=== PATIENT | male | born 1955 | race Caucasian/White ===

== ENCOUNTER 2019-10-28 04:20 | Inpatient (IN) | payer OTHER ==
--- NOTE | 2019-10-28 04:55 | PDOC ---
Attending Attestation - Resident Resident Name: Anton Alicia - ED Attending Attestation I have performed the following: I have examined & evaluated the patient, The case was reviewed & discussed with the resident, I agree w/resident's findings & plan - HPI HPI: 10/28/19 05:01 Pt comes with fever and cough and some burning on urination Pt has no complaints otherwise. No GAMBLE and no eat or throat pain Pt has no rashes. - Physicial Exam PE: 10/28/19 05:02 Agree with resident exam HEENT normal. Pt has a left lazy eye Pt has lungs CTAb Pt has normal flank and abd; NT ND No C/C/E heart S1 S2 RRR - Medical Decision Making 10/28/19 05:45 Pt has a temp of 108 Pt has normal CBC chem and flu cx pending CXR pending. 10/28/19 06:35 Pt is flu negative 10/28/19 06:35 CHem normal CBC: normal except for 12 WBC 10/28/19 06:38 Pt has fluid in his fissures and we cannot r/o a pneumonia. Pt cannot urinate for us. We are awaiting urine sample for UA Pt will be signed out to the day team' We will treat with levaquin, as pt is PCN allergic.
[2019-10-28] MEDS ORDERED: ACETAMINOPHEN 1000 MG/100 ML VIAL (NON FORMULARY) IVPB ONE (05:07)
--- NOTE | 2019-10-28 05:10 | PDOC ---
History of Present Illness - General Chief Complaint: Cold Symptoms Stated Complaint: FEVER Time Seen by Provider: 10/28/19 04:50 - History of Present Illness Initial Comments: 10/28/19 05:04 64 yo M with h/o NIDDM, HTN who p/w cough and fever. [facility] with complaint of fevers x 5 days (Tmax 103), and dry non productive cough x 4 days. Denies OTC symptom management. Reports 3 days of ds yuria intermittently. Patient denies GAMBLE, vision change, palpitations, wheezing, orthopena, PND, leg swelling/pain, N/V, CP, SOB, hematuria, BPR, abdominal pain, diarrhea, constipation, lightheadedness, weakness, sensory changes. PMHx: as noted above ROS: as noted SHx: Denies Etoh, IVDA, tobacco use. Not sexually active. No recent travels, or sick contacts. Allergies: NKDA Past History - Past Medical History Allergies/Adverse Reactions: Allergies Allergy/AdvReac Type Severity Reaction Status Date / Time Penicillins Allergy Verified 10/28/19 05:17 - Psycho Social/Smoking Cessation Hx Smoking History: Unknown if ever smoked Have you smoked in the past 12 months: No Information on smoking cessation initiated: No Hx Alcohol Use: No Drug/Substance Use Hx: No Review of Systems - Review of Systems Comments:: 10/28/19 05:14 GENERAL/CONSTITUTIONAL:+fever. No weakness. HEAD, EYES, EARS, NOSE AND THROAT: No change in vision. No ear pain or discharge. No sore throat. CARDIOVASCULAR: No chest pain or shortness of breath RESPIRATORY: + cough. No wheezing, or hemoptysis. GASTROINTESTINAL: No nausea, vomiting, diarrhea or constipation. GENITOURINARY: + dysuria. No frequency, or change in urination. MUSCULOSKELETAL: No joint or muscle swelling or pain. No neck or back pain. SKIN: No rash NEUROLOGIC: No headache, vertigo, loss of consciousness, or change in strength/sensation. ENDOCRINE: No increased thirst. No abnormal weight change HEMATOLOGIC/LYMPHATIC: No anemia, easy bleeding, or history of blood clots. ALLERGIC/IMMUNOLOGIC: No hives or skin allergy. *Physical Exam - Vital Signs Last Vital Signs Temp Pulse Resp BP Pulse Ox 101.8 F H 90 18 122/68 96 10/28/19 04:29 10/28/19 04:29 10/28/19 04:29 10/28/19 04:29 10/28/19 04:29 - Physical Exam 10/28/19 05:15 GENERAL: Awake, alert, and fully oriented, in no acute distress HEAD: No signs of trauma, normocephalic, atraumatic EYES: + Left eye deviated inferolateral. PERRLA, EOMI, sclera anicteric, conjunctiva clear ENT: Auricles normal inspection, hearing grossly normal, nares patent, oropharynx clear without exudates. Moist mucosa NECK: Normal ROM, supple, no lymphadenopathy, JVD, or masses LUNGS: No distress, speaks full sentences, clear to auscultation bilaterally HEART: Regular rate and rhythm, normal S1 and S2, no murmurs, rubs or gallops, peripheral pulses normal and equal bilaterally. ABDOMEN: Soft, nontender, normoactive bowel sounds. No guarding, no rebound. No masses EXTREMITIES : Normal inspection, Normal range of motion, no edema. No clubbing or cyanosis NEUROLOGICAL: Cranial nerves II through XII grossly intact. Normal speech, normal gait, no focal sensorimotor deficits SKIN: Warm, Dry, normal turgor, no rashes or lesions noted ED Treatment Course - LABORATORY CBC & Chemistry Diagram: 10/28/19 05:10 10/28/19 05:10 - RADIOLOGY Radiology Studies Ordered: Category Date Time Status CHEST X-RAY PORTABLE* [RAD] Stat Radiology 10/28/19 05:02 Ordered Medical Decision Making - Medical Decision Making 10/28/19 05:10 64 yo M with h/o NIDDM, HTN who [facility] with complaint of fevers x 5 days (Tmax 103), and dry non productive cough x 4 days. Dysuria x 4 days. HR90, Temp 101.8, vitals otherwise wnl, A&Ox3. Physical exam unremarkable. Suspect viral URI vs. PNA. Will reassess. DDx: URI, PNA, Flu, UTI Ed Course: Tylenol, NS 10/28/19 06:21 Laboratory Tests 10/28/19 10/28/19 05:10 05:10 WBC 12.4 H Hgb 12.6 Hct 37.0 Plt Count 157 Sodium 137 Potassium 4.4 BUN 26.7 H Creatinine 1.1 Troponin I < 0.02 10/28/19 06:45 CXR: R middle lobe infiltrate and LLL infiltrate. Levaquin 500 mg 10/28/19 07:15 Pt. endorsed to day team, stable, pending UA, admit Discharge - Discharge Information Problems reviewed: Yes Clinical Impression/Diagnosis: Cough Pneumonia Qualifiers: Pneumonia type: due to unspecified organism Laterality: bilateral Lung location: lower lobe of lung Qualified Code(s): J18.9 - Pneumonia, unspecified organism Condition: Stable - Admission Yes - Follow up/Referral Referrals: Refugio Moe MD [Primary Care Provider] - - Patient Discharge Instructions Patient Printed Discharge Instructions: DI for Viral Upper Respiratory Infection -- Adult Additional Instructions: Please return to the emergency department with any new or worsening symptoms or concerns. Please follow up with your primary care physician within 72 hours. You can take 600 mg Ibuprofen and/or Acetaminophen 650 mg every 6-8 hours as needed for pain - Post Discharge Activity
[2019-10-28 05:35] LABS: BASO % 0.1 % (0-2.0); EOS % 0.2 % (0-4.5); HEMOGLOBIN 12.6 GM/dL (11.7-16.9); LYMPH % 8.4 % (8-40); MCH 29.9 pg (25.7-33.7); MEAN CELL VOLUME 87.9 fl (80-96); MEAN PLT VOLUME 7.6 fl (7.5-11.1); MONO % 5.8 % (3.8-10.2); NEUT % 85.5 % (42.8-82.8); PLATELET COUNT 157 K/MM3 (134-434); RBC 4.21 M/mm3 (4.00-5.60); RDW 13.6 % (11.9-15.9); WHITE BLOOD COUNT 12.4 K/mm3 (4.0-10.0)
[2019-10-28 06:04] LABS: ALBUMIN 3.5 g/dl (3.4-5.0); ALK PHOS 50 U/L (45-117); ANION GAP 6 MMOL/L (8-16); BILIRUBIN,TOTAL 0.5 mg/dL (0.2-1); BLOOD UREA NITROGEN 26.7 mg/dL (7-18); CALCIUM 8.6 mg/dL (8.5-10.1); CHLORIDE 103 mmol/L (98-107); CO2 27 mmol/L (21-32); CREATININE 1.1 mg/dL (0.55-1.3); GLUCOSE,RANDOM 106 mg/dL (74-106); POTASSIUM 4.4 mmol/L (3.5-5.1); SGOT/AST 18 U/L (15-37); SGPT/ALT 25 U/L (13-61); SODIUM 137 mmol/L (136-145)
[2019-10-28 06:31] LABS: INR 1.16 (0.83-1.09); PROTHROMBIN TIME (PATIENT) 13.7 SEC (9.7-13.0)
[2019-10-28] MEDS ORDERED: SODIUM CHLORIDE 500 ML IV STA (07:32)
[2019-10-28 08:01] LABS: EPI CELLS 0.1 /HPF (0-5/HPF); HYALINE CASTS 6 /lpf (0-8); PH,URINE >= 9.0 (5.0-8.0); URINE APPEARANCE CLEAR; URINE BACTERIA 1176.1 /hpf (NEGATIVE); URINE BILIRUBIN NEGATIVE (NEGATIVE); URINE COLOR YELLOW; URINE GLUCOSE (UA) NEGATIVE (NEGATIVE); URINE KETONE NEGATIVE (NEGATIVE); URINE LEUK ESTERASE 2+ (NEGATIVE); URINE NITRITE NEGATIVE (NEGATIVE); URINE PROTEIN NEGATIVE (NEGATIVE); URINE RBC 6 /hpf (0-4); URINE UROBILINOGEN 0.2 mg/dL (0.2-1.0); URINE WBC 84 /hpf (0-5)
[2019-10-28 08:04] LABS: EPI CELLS 0.1 /HPF (0-5/HPF); HYALINE CASTS 5 /lpf (0-8); PH,URINE 8.5 (5.0-8.0); URINE APPEARANCE CLEAR; URINE BACTERIA 1189.5 /hpf (NEGATIVE); URINE BILIRUBIN NEGATIVE (NEGATIVE); URINE COLOR YELLOW; URINE GLUCOSE (UA) NEGATIVE (NEGATIVE); URINE KETONE NEGATIVE (NEGATIVE); URINE LEUK ESTERASE 2+ (NEGATIVE); URINE NITRITE NEGATIVE (NEGATIVE); URINE PROTEIN NEGATIVE (NEGATIVE); URINE RBC 6 /hpf (0-4); URINE UROBILINOGEN 0.2 mg/dL (0.2-1.0); URINE WBC 89 /hpf (0-5)
--- NOTE | 2019-10-28 09:25 | HP ---
CHIEF COMPLAINT: Cough and fevers PCP: Dr. Carreon HISTORY OF PRESENT ILLNESS: Pt. is a 64 y.o. M w/ PMHx. of Mild intellectual delay, HTN, Anxiety, GERD, DM2, HLD, Gait Instability and BPH presenting from [facility] for non-productive cough for 4 days and associated fevers. Pt. states his temperature was as high as 105 degrees at the facility and then went to 103 before coming to the hospital. Pt. endorses a sore throat from coughing but denies any shortness of breath. Pt. states that he has never had pneumonia before. Pt. also endorses burning sensation on urinating a few days ago but that he increased his fluid intake to "flush it out." Pt. states that 2 days ago he noticed a little bit, "speck" of blood in his urine, but that this has not happened again since. Pt. endorse RLE swelling over the last couple of weeks. Pt. states he gets around with a walker. Pt. denies any current pain or history of heart problems. Pt. denies any nausea, vomiting, abdominal pain, back pain or any other symptoms at this time. Health Aid at bedside corroborates Pt.s description of events but she states she was unable to verify the exact numbers for the temperatures that the Pt. has had. ER course was notable for: (1) CXR, UA, BCx, UCx. CBC, CMP, (2)500cc NS, Levaquin, EKG (3) Recent Travel: No PAST MEDICAL HISTORY: As above PAST SURGICAL HISTORY: Unclear, No surgical scars noted Social History: Smoking: None Alcohol: None Drugs: None Allergies Penicillins Allergy (Verified 10/28/19 05:17) HOME MEDICATIONS: Home Medications Home Medications Medication Instructions Recorded Amlodipine Besylate [Norvasc -] 10 mg PO DAILY 10/28/19 Aspirin 1 tab PO DAILY 10/28/19 Atorvastatin Calcium [Lipitor] 10 mg PO HS 10/28/19 Benztropine Mesylate [Cogentin -] 1 mg PO DAILY 10/28/19 Divalproex [Depakote -] 250 mg PO BID 10/28/19 Docusate Sodium [Docusate 100 mg] 200 mg PO BID 10/28/19 Dutasteride 1 cap PO DAILY 10/28/19 Fenofibrate Nanocrystallized 1 tab PO HS 10/28/19 [Fenofibrate] LORazepam [Lorazepam] 1 mg PO BID 10/28/19 Lisinopril 10 mg PO DAILY 10/28/19 Mag Hydrox/Aluminum Hyd/Simeth 30 ml PO ASDIR 10/28/19 [Lesly-Lanta Liquid] Metformin HCl [Glucophage] 500 mg PO DAILY 10/28/19 York-3/Dha/Epa/Fish Oil [Fish Oil 2 each PO BID 10/28/19 1,000 mg Softgel] Quetiapine Fumarate [Seroquel -] 300 mg PO BID 10/28/19 Tamsulosin HCl [Flomax] 0.8 mg PO DAILY 10/28/19 REVIEW OF SYSTEMS As above PHYSICAL EXAMINATION Vital Signs - 24 hr 10/28/19 10/28/19 10/28/19 04:29 05:34 06:11 Temperature 101.8 F H 98.4 F Pulse Rate 90 Pulse Rate [ 69 Radial] Respiratory 18 18 Rate Blood Pressure 122/68 Blood Pressure 128/70 [Left Arm] O2 Sat by Pulse 96 96 95 Oximetry (%) GENERAL: Awake, alert, in no acute distress. HEAD: Normal with no signs of trauma. EYES: Pupils equal, round and reactive to light, extraocular movements intact, L. eye lateral strabismus EARS, NOSE, THROAT: Ears normal, nares patent, oropharynx clear without exudates. Moist mucous membranes. NECK: No JVD LUNGS: Decreased Breath sounds in RML and LLL, No wheezes, and no crackles. No accessory muscle use. HEART: Regular rate and rhythm, normal S1 and S2 without appreciated murmur, difficult to hear because of body habitus ABDOMEN: Obese, soft, nontender, not distended, normoactive bowel sounds, no guarding, no rebound, no masses. MUSCULOSKELETAL: No CVA tenderness. UPPER EXTREMITIES: 2+ radial pulses, warm, well-perfused. No cyanosis. No clubbing. No peripheral edema. LOWER EXTREMITIES: 2+ dorsal pedal pulses, warm, well-perfused. No calf tenderness. Non-pitting RLE edema with slight lower calf / high ankle erythema. NEUROLOGICAL: Normal speech. Gait not assessed PSYCHIATRIC: Cooperative. Good eye contact. Appropriate mood and affect. SKIN: Warm, dry, normal turgor Laboratory Results - last 24 hr 10/28/19 10/28/19 10/28/19 05:00 05:10 05:10 WBC 12.4 H RBC 4.21 Hgb 12.6 Hct 37.0 MCV 87.9 MCH 29.9 MCHC 34.0 RDW 13.6 Plt Count 157 MPV 7.6 Absolute Neuts (auto) 10.6 H Neutrophils % 85.5 H Lymphocytes % 8.4 Monocytes % 5.8 Eosinophils % 0.2 Basophils % 0.1 Nucleated RBC % 0 PT with INR 13.70 H INR 1.16 H PTT (Actin FS) 36.0 VBG pH Cancelled POC VBG pCO2 Cancelled POC VBG pO2 Cancelled VBG HCO3 Cancelled VBG O2 Sat (Chen) Cancelled VBG Base Excess Cancelled Sodium Potassium Chloride Carbon Dioxide Anion Gap BUN Creatinine Est GFR (CKD-EPI)AfAm Est GFR (CKD-EPI)NonAf Random Glucose Lactic Acid Calcium Total Bilirubin AST ALT Alkaline Phosphatase Troponin I Total Protein Albumin Urine Color Urine Appearance Urine pH Ur Specific Whitman Urine Protein Urine Glucose (UA) Urine Ketones Urine Blood Urine Nitrite Urine Bilirubin Urine Urobilinogen Ur Leukocyte Esterase Urine WBC (Auto) Urine RBC (Auto) Urine Casts (Auto) U Epithel Cells (Auto) Urine Bacteria (Auto) Influenza A (Rapid) Influenza B (Rapid) 10/28/19 10/28/19 10/28/19 05:10 05:10 05:10 WBC RBC Hgb Hct MCV MCH MCHC RDW Plt Count MPV Absolute Neuts (auto) Neutrophils % Lymphocytes % Monocytes % Eosinophils % Basophils % Nucleated RBC % PT with INR INR PTT (Actin FS) VBG pH POC VBG pCO2 POC VBG pO2 VBG HCO3 VBG O2 Sat (Chen) VBG Base Excess Sodium 137 Potassium 4.4 Chloride 103 Carbon Dioxide 27 Anion Gap 6 L BUN 26.7 H Creatinine 1.1 Est GFR (CKD-EPI)AfAm 81.79 Est GFR (CKD-EPI)NonAf 70.57 Random Glucose 106 Lactic Acid 1.6 Calcium 8.6 Total Bilirubin 0.5 AST 18 ALT 25 Alkaline Phosphatase 50 Troponin I < 0.02 Total Protein 7.0 Albumin 3.5 Urine Color Urine Appearance Urine pH Ur Specific Whitman Urine Protein Urine Glucose (UA) Urine Ketones Urine Blood Urine Nitrite Urine Bilirubin Urine Urobilinogen Ur Leukocyte Esterase Urine WBC (Auto) Urine RBC (Auto) Urine Casts (Auto) U Epithel Cells (Auto) Urine Bacteria (Auto) Influenza A (Rapid) Negative Influenza B (Rapid) Negative 10/28/19 10/28/19 07:30 07:30 WBC RBC Hgb Hct MCV MCH MCHC RDW Plt Count MPV Absolute Neuts (auto) Neutrophils % Lymphocytes % Monocytes % Eosinophils % Basophils % Nucleated RBC % PT with INR INR PTT (Actin FS) VBG pH POC VBG pCO2 POC VBG pO2 VBG HCO3 VBG O2 Sat (Chen) VBG Base Excess Sodium Potassium Chloride Carbon Dioxide Anion Gap BUN Creatinine Est GFR (CKD-EPI)AfAm Est GFR (CKD-EPI)NonAf Random Glucose Lactic Acid Calcium Total Bilirubin AST ALT Alkaline Phosphatase Troponin I Total Protein Albumin Urine Color Yellow Yellow Urine Appearance Clear Clear Urine pH >= 9.0 H 8.5 H Ur Specific Whitman 1.021 1.021 Urine Protein Negative Negative Urine Glucose (UA) Negative Negative Urine Ketones Negative Negative Urine Blood Trace 1+ H Urine Nitrite Negative Negative Urine Bilirubin Negative Negative Urine Urobilinogen 0.2 0.2 Ur Leukocyte Esterase 2+ H 2+ H Urine WBC (Auto) 84 89 Urine RBC (Auto) 6 6 Urine Casts (Auto) 6 5 U Epithel Cells (Auto) 0.1 0.1 Urine Bacteria (Auto) 1176.1 1189.5 Influenza A (Rapid) Influenza B (Rapid) ASSESSMENT/PLAN: Pt. is a 64 y.o. M w/ PMHx. of Mild intellectual delay, HTN, Anxiety, GERD, DM2, HLD, Gait Instability and BPH presenting from [facility] for non-productive cough for 4 days, dysuria, hematuria and associated fevers. #Pyelonephritis unclear if Pt. showing systemic symptoms from PNA, UTI or both UA positive for 1+ blood, 2+ LE, 89 WBCs and 1100+ bacteria Pt. endorsed scant hematuria 2 days ago and resolved dysuria c/w Ceftriaxone Rpt. UA prior to discharge to ensure resolution of blood, if unresolved will need Urology outpatient evaluation for cystoscopy Discussed with Nurse at [facility] and she states that Gary went to the Urologist on Wednesday for "foul smelling urine," who did a UA and noted microscopic hematuria, he elected to monitor, and was not given any prescription. Given Levaquin in ED #Cough CXR: Read as w/o definite infiltrates or edema. 10 mm RLL nodule, suggest Chest CT f/u Chest CT Febrile to 101.8 in the hospital Discussed w/ Dr. Carreon at [facility] that Pt. does not meet criteria at this time for Covid-19 testing as Pt. has not been to any of the "affected areas" and Pt. has not been in direct contact with any of the quarantined people from the [facility]. Discussed with Nurse at [facility] and she states that Gary had only been complaining of tiredness. Pt. was not coughing and had not been coughing in her presence. She saw him everyday. Will continue Ceftriaxone, Pt,. has known Penicillin Allergy, will challenge with Ceftriaxone and order PRN Benadryl, discussed with RN to monitor for allergy symptoms and sign out to the next day RN the same. Droplet Precautions f/u RSV and Respiratory Viral Panel. Rapid Flu negative #HTN #GERD #Anxiety #Mood Disorder #DM2 #HLD #BPH #Mild Intellectual Disability c/w home medications or hospital equivalents except Metformin, start ISS and BGM ACHS #FEN no IVF, encourage PO intake monitor electrolytes and replete as needed Diabetic/Na restricted Diet #DVT Ppx. Hep SQ Visit type - Emergency Visit Emergency Visit: Yes ED Registration Date: 10/28/19 Care time: The patient presented to the Emergency Department on the above date and was hospitalized for further evaluation of their emergent condition. - New Patient This patient is new to me today: Yes Date on this admission: 10/28/19 - Critical Care Critical Care patient: No ATTENDING PHYSICIAN STATEMENT I saw and evaluated the patient. I reviewed the resident's note and discussed the case with the resident. I agree with the resident's findings and plan as documented. SUBJECTIVE: OBJECTIVE: ASSESSMENT AND PLAN:
--- NOTE | 2019-10-28 10:27 | EKG ---
Test Reason : Blood Pressure : / mmHG Vent. Rate : 073 BPM Atrial Rate : 073 BPM P-R Int : 206 ms QRS Dur : 154 ms QT Int : 428 ms P-R-T Axes : 015 -38 -03 degrees QTc Int : 471 ms NORMAL SINUS RHYTHM LEFT AXIS DEVIATION RIGHT BUNDLE BRANCH BLOCK MINIMAL VOLTAGE CRITERIA FOR LVH, MAY BE NORMAL VARIANT SEPTAL INFARCT , AGE UNDETERMINED ABNORMAL ECG NO PREVIOUS ECGS AVAILABLE Confirmed by Raoul Menchaca MD ([id number]) on 10/28/2019 10:27:08 AM Referred By: Confirmed By:Raoul Menchaca MD
[2019-10-28] MEDS ORDERED: MAG HYDROX/AL HYDROX/SIMETH 30 ML UNIT-DOSE CUP PO SCH (11:30)
[2019-10-28] MEDS ORDERED: LORazepam 0.5 MG TABLET ONE (11:35)
[2019-10-28] MEDS ORDERED: LISINOPRIL 20 MG TABLET (FP) ONE (11:36)
[2019-10-28] MEDS ORDERED: MAG HYDROX/AL HYDROX/SIMETH 30 ML UNIT-DOSE CUP ONE (11:36)
[2019-10-28] MEDS: ASPIRIN 81 MG CHEWABLE TABLETS PO SCH (11:42)
[2019-10-28] MEDS: TAMSULOSIN HCL 0.4 MG CAP PO SCH (11:42)
[2019-10-28] MEDS: LORazepam 1 MG TABLET PO SCH ×2 (11:42→22:39)
[2019-10-28] MEDS: LISINOPRIL 10 MG TABLET (FP) PO SCH (11:42)
[2019-10-28 13:02] VITALS: BMI 38.6
--- NOTE | 2019-10-28 16:34 | PN ---
Teaching Attending Note Name of Resident: Brett Coreas ATTENDING PHYSICIAN STATEMENT I saw and evaluated the patient. I reviewed the resident's note and discussed the case with the resident. I agree with the resident's findings and plan as documented. SUBJECTIVE: CC: fever and cough x 4 days HPI: Gary is a 64 y/o man with h/o mild intellectual disability, HTN, mood disorder, DM, HLP, BPH, and other medical problems who presented from [place] with cough and fever. The patient and the aid indicate fever x 4-5 days ( 103) . dry cough might have started 2-4 days ago. he denies any sore throat, runny nose, difficulty swallowing, or , N/V . He has no SOB . Cough is dry with no sputum,. He has dysuria and saw blood in his urine x 2 days . he denies abd pain. No diarrhea. facility was called for more info, but no one picked up. Per Dr. Coreas's conversation with Dr. Carreon, He was notified of the patient having fever yesterday, He was not sure when cough started. Dr. Carreon denies any h/o travel for patient . also , No contact with any one who has [place]spina Virus or any one who had contact with [place] Virus confirmed cases. In ER, he was given levaquin for PNA . and was transferred to floor . Cxray ( image and report were reviewed). No infiltrate EKG : reviewed. L axis, R BBB, Qtc 471.sinus rhythm OBJECTIVE: NAD, awake, alert , cooperative . MMM, No lymphadenopathy in neck . CV: RRR, NO MRG Lungs: CTAB. No crackles. no wheezes Abd: soft, NT, ND, NL BS. Ext : trace edema on both lower legs. slight erythema on lower part of legs R > L. R leg is slightly warmer. DP 2+ b/l. varicose veins on both lower legs and feet. Neuro: lateral deviation of L eye . R EOMI , no facial droop. tongue at mid line. Strength 5/5 in upper and lower extremities proximally and distally. decreased sensation to light touch in RLE. ASSESSMENT AND PLAN: Gary is a 64 y/o man with h/o mild intellectual disability, HTN, mood disorder, DM, HLP, BPH, and other medical problems who presented from [place] with cough and fever. 1- Fever: the most likely source is UTI ( dyuria, hematuria, pyuria) . No crackles on exam, No infiltrate on cxray. no sputum production . cough is not fully explained though. ? URI , viral bronchitis. ? Flu. although R leg is slightly erythematous, I think this is from edema and stasis in setting of varicose veins. - start ceftriaxone for UTI - Unfortunately, urine cx was sent after Levaquin was given in ER . will follow - Blood cx was sent befoer Abx - will obtain CT of chest - will obtain full respiratory viral panel, and RSV. rapid flu neg - will place on droplet precautions pending respiratory testing. - start IVF - Due to a probable source of the fever ( UTI), and lack of criteria for exposure/high risk , will not be testing for Cororna virs as risk is low. This was discussed with Dr. Ye. 2- H/o HTN: cont Norvasc and lisinopril 3- RLE decreased sensation : unclear etiology. could be due to back/disk problem . No weakness on neuro exam. - out pt work up 4- H/o Mood disorder: cont divalproex and seroquel and Lorazepam 5- Dispo: HLOC
[2019-10-28] MEDS: BENZTROPINE MESYLATE 1 MG TABLET PO SCH (16:35)
[2019-10-28] MEDS: DIVALPROEX SODIUM 250 MG TABLET E.C. PO SCH ×2 (16:36→22:39)
[2019-10-28] MEDS: amLODIPine BESYLATE 10 MG TABLET (FP) PO SCH (16:46)
[2019-10-28] MEDS: DUTASTERIDE 0.5 MG CAP (FP) PO SCH (16:46)
[2019-10-28] MEDS: INSULIN SLIDING SCALE (NOVOLOG) 1 VIAL SQ SCH ×2 (17:35→22:45)
[2019-10-28] MEDS: SODIUM CHLORIDE 1,000 ML IV SCH (17:37)
[2019-10-28] MEDS: DOCUSATE SODIUM 100 MG CAPSULE (FP) PO SCH ×2 (17:37→22:39)
[2019-10-28] MEDS ORDERED: HEPARIN NA (PORCINE) 5,000 UNITS/ML 1ML VIAL SQ SCH (18:00)
[2019-10-28] MEDS ORDERED: QUEtiapine FUMARATE 100 MG TABLET (FP) ONE (21:20)
[2019-10-28] MEDS ORDERED: QUEtiapine FUMARATE 300 MG TABLET PO SCH (22:00)
[2019-10-28] MEDS: OMEGA-3 ACID ETHYL ESTERS (FATTY-ACIDS) 1 GM CAPSULE (FP) PO SCH (22:39)
[2019-10-28] MEDS: FENOFIBRIC ACID 135 MG CAP PO SCH (22:39)
[2019-10-28] MEDS: ATORVASTATIN CA 10 MG TABLET (FP) PO SCH (22:39)
[2019-10-29] MEDS: HEPARIN NA (PORCINE) 5,000 UNITS/ML 1ML VIAL SQ SCH ×3 (06:26→21:45)
[2019-10-29] MEDS: INSULIN SLIDING SCALE (NOVOLOG) 1 VIAL SQ SCH ×4 (06:26→21:51)
[2019-10-29 07:04] LABS: BASO % 0.2 % (0-2.0); EOS % 1.4 % (0-4.5); HEMATOCRIT 32.9 % (35.4-49); HEMOGLOBIN 11.4 GM/dL (11.7-16.9); LYMPH % 25.4 % (8-40); MCH 30.3 pg (25.7-33.7); MCHC 34.7 g/dl (32.0-35.9); MEAN CELL VOLUME 87.2 fl (80-96); MEAN PLT VOLUME 7.7 fl (7.5-11.1); PLATELET COUNT 149 K/MM3 (134-434); RBC 3.78 M/mm3 (4.00-5.60); RDW 13.4 % (11.9-15.9); WHITE BLOOD COUNT 7.3 K/mm3 (4.0-10.0)
[2019-10-29 07:05] LABS: INR 1.18 (0.83-1.09); PROTHROMBIN TIME (PATIENT) 13.9 SEC (9.7-13.0)
[2019-10-29 07:48] LABS: BILIRUBIN,TOTAL 0.6 mg/dL (0.2-1); BLOOD UREA NITROGEN 26.1 mg/dL (7-18); CALCIUM 8.2 mg/dL (8.5-10.1); CREATININE 0.9 mg/dL (0.55-1.3); PHOSPHOROUS 3.5 mg/dL (2.5-4.9); POTASSIUM 4.2 mmol/L (3.5-5.1); TOT PROT 6.2 g/dl (6.4-8.2)
--- NOTE | 2019-10-29 07:51 | PN ---
Progress Note (short form) - Note Progress Note: Subjective: No fever or chills. no pain , did not sleep last night . contt o have non productive cough Objective: Vital Signs: Last Vital Signs Temp Pulse Resp BP Pulse Ox 98.2 F 62 20 121/70 97 10/29/19 08:58 10/29/19 08:58 10/29/19 09:00 10/29/19 08:58 10/29/19 09:00 Laboratory Results - last 24 hr 10/28/19 10/28/19 10/28/19 13:06 16:58 22:43 WBC RBC Hgb Hct MCV MCH MCHC RDW Plt Count MPV Absolute Neuts (auto) Neutrophils % Lymphocytes % Monocytes % Eosinophils % Basophils % Nucleated RBC % PT with INR INR Sodium Potassium Chloride Carbon Dioxide Anion Gap BUN Creatinine Est GFR (CKD-EPI)AfAm Est GFR (CKD-EPI)NonAf POC Glucometer 93 108 134 Random Glucose Calcium Phosphorus Magnesium Total Bilirubin AST ALT Alkaline Phosphatase Total Protein Albumin 10/29/19 10/29/19 10/29/19 05:51 06:32 06:32 WBC 7.3 RBC 3.78 L Hgb 11.4 L Hct 32.9 L MCV 87.2 MCH 30.3 MCHC 34.7 RDW 13.4 Plt Count 149 MPV 7.7 Absolute Neuts (auto) 4.7 Neutrophils % 65.0 D Lymphocytes % 25.4 D Monocytes % 8.0 Eosinophils % 1.4 D Basophils % 0.2 Nucleated RBC % 0 PT with INR 13.90 H INR 1.18 H Sodium Potassium Chloride Carbon Dioxide Anion Gap BUN Creatinine Est GFR (CKD-EPI)AfAm Est GFR (CKD-EPI)NonAf POC Glucometer 88 Random Glucose Calcium Phosphorus Magnesium Total Bilirubin AST ALT Alkaline Phosphatase Total Protein Albumin 10/29/19 10/29/19 06:32 10:59 WBC RBC Hgb Hct MCV MCH MCHC RDW Plt Count MPV Absolute Neuts (auto) Neutrophils % Lymphocytes % Monocytes % Eosinophils % Basophils % Nucleated RBC % PT with INR INR Sodium 142 Potassium 4.2 Chloride 107 Carbon Dioxide 26 Anion Gap 8 BUN 26.1 H Creatinine 0.9 Est GFR (CKD-EPI)AfAm 104.24 Est GFR (CKD-EPI)NonAf 89.94 POC Glucometer 129 Random Glucose 90 Calcium 8.2 L Phosphorus 3.5 Magnesium 2.0 Total Bilirubin 0.6 AST 16 ALT 19 Alkaline Phosphatase 45 Total Protein 6.2 L Albumin 3.0 L Physical Exam: slightly lethargic , cooperative CV: RRR, NO MRG Lungs: crackles at L base Abd: soft, NT, ND, NL BS. Ext : trace edema on both lower legs. slight erythema on lower part of legs R > L. DP 2+ b/l. varicose veins on both lower legs and feet. ASSESSMENT AND PLAN: Gary is a 64 y/o man with h/o mild intellectual disability, HTN, mood disorder, DM, HLP, BPH, and other medical problems who presented from [place] with cough and fever. 1- B/l PNA: ? CAP VS Aspiration . No fever any more - change ceftriaxone to Zosyn - follow blood cx - send Legionella/pneumococcal Ag - Speech eval - Obtain ID consult for Abx mgt - cont IVF - follow full resp viral panel 2- UTI : cont to have dysuria and hematuria. - non lactose fermenting GNR - change CTX to zosyn 3- HTN: cont Norvasc and Lisinopril 4- decreased sensation in RLE : unclear etiology. could be due to back/disk problem . No weakness on neuro exam. - out pt work up 5- H/o Mood disorder: cont divalproex and seroquel and decrease Lorazepam dose due to lethargy ( also did not sleep last night ) 5- SQ heparin for DVT px Spoke to Dr. Carreon and updated him Visit type - Emergency Visit Emergency Visit: Yes ED Registration Date: 10/28/19 Care time: The patient presented to the Emergency Department on the above date and was hospitalized for further evaluation of their emergent condition. - New Patient This patient is new to me today: No - Critical Care Critical Care patient: No
[2019-10-29] MEDS ORDERED: QUEtiapine FUMARATE 100 MG TABLET (FP) ONE ×2 (08:52→20:46)
[2019-10-29] MEDS ORDERED: QUEtiapine FUMARATE 200 MG TABLET ONE ×2 (08:52→20:46)
[2019-10-29] MEDS ORDERED: PT OWN MED DRAWER 7, Y5N ONE ×3 (08:53→10:47)
[2019-10-29] MEDS ORDERED: AMPICILLIN NA/SULBACTAM NA 3 GM in SODIUM CHLORIDE 100 ML IVPB SCH (09:00)
[2019-10-29] MEDS: SODIUM CHLORIDE 1,000 ML IV SCH ×3 (09:00→22:47)
[2019-10-29] MEDS: OMEGA-3 ACID ETHYL ESTERS (FATTY-ACIDS) 1 GM CAPSULE (FP) PO SCH ×2 (09:03→21:43)
[2019-10-29] MEDS: amLODIPine BESYLATE 10 MG TABLET (FP) PO SCH (09:03)
[2019-10-29] MEDS: ASPIRIN 81 MG CHEWABLE TABLETS PO SCH (09:03)
[2019-10-29] MEDS: QUETIAPINE FUMARATE 200 MG, QUETIAPINE FUMARATE 100 MG PO SCH ×2 (09:03→21:43)
[2019-10-29] MEDS: DUTASTERIDE 0.5 MG CAP (FP) PO SCH (09:03)
[2019-10-29] MEDS: MAG HYDROX/AL HYDROX/SIMETH 30 ML UNIT-DOSE CUP PO SCH (09:03)
[2019-10-29] MEDS: DOCUSATE SODIUM 100 MG CAPSULE (FP) PO SCH ×2 (09:03→21:43)
[2019-10-29] MEDS: TAMSULOSIN HCL 0.4 MG CAP PO SCH (09:03)
[2019-10-29] MEDS: LORazepam 1 MG TABLET PO SCH (09:04)
[2019-10-29] MEDS: LISINOPRIL 10 MG TABLET (FP) PO SCH (09:04)
[2019-10-29] MEDS: BENZTROPINE MESYLATE 1 MG TABLET PO SCH (09:21)
[2019-10-29] MEDS: DIVALPROEX SODIUM 250 MG TABLET E.C. PO SCH ×2 (09:21→21:44)
[2019-10-29] MEDS ORDERED: AZITHROMYCIN IVPB 500 MG in DEXTROSE 5%-WATER - 250 ML IVPB SCH (10:00)
[2019-10-29] MEDS ORDERED: DOXYCYCLINE INJECTION 100 MG in DEXTROSE 5%-WATER - 100 ML IVPB SCH (10:00)
[2019-10-29] MEDS ORDERED: CEFTRIAXONE 1 GM in DEXTROSE 5%-WATER - 50 ML IVPB SCH (10:00)
[2019-10-29] MEDS ORDERED: PIPERACILLIN/TAZOB 4.5 GM 4.5 GM in DEXTROSE 5%-WATER 100 ML IVPB SCH ×2 (10:00→18:00)
--- NOTE | 2019-10-29 15:29 | PN ---
Progress Note (short form) - Note Progress Note: ID consult dictated 64 yo man admitted from [facility]-several days of fever and cough also with intermittent dysuria fever to 101.8 in ED with leukocytosis of 12k found to have pyuria and clear cxray no epidemiologic link to any known coronovirus cases in [place] at the [facility]-was d/w director of the home yesterday by hospitalist received levaquin in ED for uti influenza screen negative resp viral pcr panel pending now afebrile but with some cough chest ct with nonspecific RML, JERONIMO/LLL infiltrates-minimal UTI- will switch to ceftriaxone, qtc .47, fever resolved with levaquin ?pneumonia- rocephin/flagyl, recently at the dentist- ?aspiration continued cough- check rapid rsv antigen, will d/w hospitalist case d/w BERNARDO no indications for testing for covid 19 pen allergy noted maintain current isolation Problem List - Problems (1) UTI (urinary tract infection) Code(s): N39.0 - URINARY TRACT INFECTION, SITE NOT SPECIFIED (2) Pneumonia Code(s): J18.9 - PNEUMONIA, UNSPECIFIED ORGANISM Qualifiers: Pneumonia type: due to unspecified organism Laterality: bilateral Lung location: lower lobe of lung Qualified Code(s): J18.9 - Pneumonia, unspecified organism
[2019-10-29] MEDS ORDERED: cefTRIAXone SODIUM 1 GM VIAL ONE (15:40)
[2019-10-29] MEDS ORDERED: DEXTROSE 5%-WATER - 50 ML IVPB ONE (15:41)
[2019-10-29] MEDS: CEFTRIAXONE 1 GM in DEXTROSE 5%-WATER - 50 ML IVPB SCH (15:47)
[2019-10-29] MEDS: FENOFIBRIC ACID 135 MG CAP PO SCH (21:43)
[2019-10-29] MEDS: LORazepam 0.5 MG TABLET PO SCH (21:44)
[2019-10-29] MEDS: ATORVASTATIN CA 10 MG TABLET (FP) PO SCH (21:44)
[2019-10-30] MEDS: HEPARIN NA (PORCINE) 5,000 UNITS/ML 1ML VIAL SQ SCH ×3 (05:47→22:21)
[2019-10-30] MEDS: INSULIN SLIDING SCALE (NOVOLOG) 1 VIAL SQ SCH ×4 (06:17→22:33)
[2019-10-30 08:50] LABS: BASO % 0.4 % (0-2.0); EOS % 2.7 % (0-4.5); HEMATOCRIT 33.9 % (35.4-49); HEMOGLOBIN 11.4 GM/dL (11.7-16.9); LYMPH % 25.6 % (8-40); MCH 29.9 pg (25.7-33.7); MCHC 33.7 g/dl (32.0-35.9); MEAN CELL VOLUME 88.8 fl (80-96); MEAN PLT VOLUME 7.5 fl (7.5-11.1); MONO % 9.3 % (3.8-10.2); PLATELET COUNT 166 K/MM3 (134-434); RBC 3.81 M/mm3 (4.00-5.60); RDW 13.6 % (11.9-15.9); WHITE BLOOD COUNT 4.5 K/mm3 (4.0-10.0)
[2019-10-30] MEDS ORDERED: PT OWN MED DRAWER 7, Y5N ONE ×2 (09:06→09:44)
[2019-10-30] MEDS ORDERED: QUEtiapine FUMARATE 100 MG TABLET (FP) ONE ×2 (09:43→22:12)
[2019-10-30] MEDS ORDERED: QUEtiapine FUMARATE 200 MG TABLET ONE ×2 (09:43→22:12)
[2019-10-30] MEDS ORDERED: cefTRIAXone SODIUM 1 GM VIAL ONE (09:44)
[2019-10-30] MEDS ORDERED: DEXTROSE 5%-WATER - 50 ML IVPB ONE (09:45)
[2019-10-30] MEDS: ASPIRIN 81 MG CHEWABLE TABLETS PO SCH (09:56)
[2019-10-30] MEDS: TAMSULOSIN HCL 0.4 MG CAP PO SCH (09:56)
[2019-10-30] MEDS: LORazepam 0.5 MG TABLET PO SCH ×2 (09:56→22:21)
[2019-10-30] MEDS: DOCUSATE SODIUM 100 MG CAPSULE (FP) PO SCH ×2 (09:57→22:19)
[2019-10-30] MEDS: DUTASTERIDE 0.5 MG CAP (FP) PO SCH (09:57)
[2019-10-30] MEDS: DIVALPROEX SODIUM 250 MG TABLET E.C. PO SCH ×2 (09:57→23:00)
[2019-10-30] MEDS: OMEGA-3 ACID ETHYL ESTERS (FATTY-ACIDS) 1 GM CAPSULE (FP) PO SCH ×2 (09:58→22:20)
[2019-10-30] MEDS: amLODIPine BESYLATE 10 MG TABLET (FP) PO SCH (09:58)
[2019-10-30] MEDS: LISINOPRIL 10 MG TABLET (FP) PO SCH (09:58)
[2019-10-30] MEDS: MAG HYDROX/AL HYDROX/SIMETH 30 ML UNIT-DOSE CUP PO SCH (09:58)
[2019-10-30] MEDS: BENZTROPINE MESYLATE 1 MG TABLET PO SCH (09:58)
[2019-10-30] MEDS: QUETIAPINE FUMARATE 200 MG, QUETIAPINE FUMARATE 100 MG PO SCH ×2 (09:59→22:19)
[2019-10-30] MEDS: CEFTRIAXONE 1 GM in DEXTROSE 5%-WATER - 50 ML IVPB SCH (11:03)
--- NOTE | 2019-10-30 11:49 | PN ---
Teaching Attending Note Name of Resident: Katelyn Ornelas ATTENDING PHYSICIAN STATEMENT I saw and evaluated the patient. I reviewed the resident's note and discussed the case with the resident. I agree with the resident's findings and plan as documented. SUBJECTIVE: No fever or chills. he feels better . cont to have dry cough Physical Exam: awake, alert, cooperative . externally deviated L eye CV: RRR, NO MRG Lungs: CTAB today Abd: soft, NT, ND, NL BS. Ext: trace edema on both lower legs. slight erythema on lower part of legs R > L. . varicose veins on both lower legs and feet. ASSESSMENT AND PLAN: Gary is a 64 y/o man with h/o mild intellectual disability, HTN, mood disorder, DM, HLP, BPH, and other medical problems who presented from [place] with cough and fever. 1- B/l PNA: ? CAP VS Aspiration . - Cont ceftriaxone and flagyl - follow blood cx ( negative to date) - Legionella/pneumococcal Ag , and rapid RSv neg - Speech eval - can stop IVF . Not septic any more and with god oral intake - follow full resp viral panel 2- UTI : Urine cx with proteus -cont ceftriaxone 3- HTN: cont Norvasc and Lisinopril 4- Decreased sensation in RLE: unclear etiology. could be due to back/disk problem - out pt work up 5- H/o Mood disorder: cont divalproex and seroquel and decreased dose of Lorazepam 5- SQ heparin for DVT px
--- NOTE | 2019-10-30 12:39 | CONSULT ---
Admitting History and Physical - Primary Care Physician PCP: Manuel Upton - Admission History of Present Illness: 64 y/o man with h/o mild intellectual disability, HTN, mood disorder, DM, HLP, BPH, and other medical problems who admitted from [facility]-several days of fever and cough and intermittent dysuria 1- B/l PNA: ? CAP VS Aspiration . 2- UTI : Urine cx with proteus Selected Entries 10/29/19 10/29/19 10/29/19 03:00 08:58 11:24 Breakfast 100% Lunch 100% Supper Temperature 98.2 F 98.2 F 10/29/19 10/29/19 10/29/19 14:00 17:44 22:54 Breakfast Lunch Supper 100% Temperature 97.6 F 98.1 F 10/30/19 10/30/19 10/30/19 07:00 10:00 12:00 Breakfast 100% Lunch Supper Temperature 98.5 F 98.8 F Laboratory Tests 10/28/19 10/29/19 10/30/19 05:10 06:32 08:30 WBC 12.4 H 7.3 4.5 On droplet precautions- r/o rsv History Source: Patient Limitations to Obtaining History: No Limitations - Smoking History Smoking history: Unknown if ever smoked Have you smoked in the past 12 months: No - Alcohol/Substance Use Hx Alcohol Use: No History - Admission Reason For Visit: PNEUMONIA - Diagnostics X-ray: Report Reviewed CT Scan: Report Reviewed (chest ct with nonspecific RML, JERONIMO/LLL infiltrates- minimal) - General Mental Status: Alert and Oriented, Awake and Alert, Able to Follow Commands Attention: Intact Ability to Follow Directions: Excellent Head/Neck Control: WFL - Hearing Hearing: Normal Speech Evaluation - Communication Primary Language: YORUBA Communication: Yes: Within Normal Limits Oral Expression Ability: Yes: Mild Impairment - Speech Production Able to Make Needs Known: Yes: WNL Intelligibility: Yes: Mildly Impaired - Speech Characteristics Voice Loudness: Normal Voice Pitch: Yes: Normal Voice Phonatory-based Quality: Yes: Normal Speech Clarity: < 100% Nasal Resonance: Normal Articulation: Yes: Imprecise - Language/Auditory Comprehension Follows: Yes: 1 Stage Simple Commands Observation: Able to respond to yes/no queries: Yes, Yes/No Confusion: No, Comprehends Conversational Speech: Yes - Language/Verbal Expression Able to Respond to Simple Queries: Yes: WNL Able to Communicate Wants and Needs: Yes: WNL Functional Communication Status: Yes: WNL - Memory/Perception termite treater Memory: Yes: WNL Short Term Memory: Yes: WNL (functional) - Swallow Evaluation/Bedside Assessment Current Nutritional Intake: Regular, Thin Liquids Oral Secretions: Yes: WFL Dentition: Yes: Adequate Facial Symmetry at Rest: Symmetrical Facial Symmetry on Retraction: Symmetrical Facial Movement: Controlled Sensation: Normal Against Resistance Opening: Normal Against Resistance Closing: Normal Pucker Lips: Normal Smile: Normal Lingual Movement: Normal, Symmetric Lingual Speed of Movement: Normal Lingual Movement Strgth Against Opposition: Normal Lingual Movement Characteristics: Normal Velopharyngeal Movement: Normal Laryngeal Elevation: WFL Laryngeal Movement: Able to Palpate Rate of Intake: WFL Bolus Size: WFL Labial Seal: WFL Chewing: WFL Oral Prep Time: WFL A-P Transit: WFL Pocketing: None Timing of Swallow: WFL Coughing/Throat Clear: No Change in Voice: No Recommendations - Speech Evaluation, Impression/Plan Impression: Swallowing overtly intact. - Dysphagia Impressions/Plan Swallowing Skills: WFL Dysphagia Impressions: No Impairment *Silent aspiration: cannot be R/O at bedside - Recommendations Diet Consistency: Regular Medication Administration: Whole with water Liquids: Thin Liquids
--- NOTE | 2019-10-30 13:14 | PN ---
Physical Exam: SUBJECTIVE: Patient seen and examined this AM. No acute events overnight. Continues to have congestive cough with deep inspiration. Continues to have dysuria without associated hematuria. Otherwise denies fevers, chills, chest pain, SOB, nausea, vomiting, diarrhea, constipation. OBJECTIVE: Vital Signs Period Temp Pulse Resp BP Sys/Vásquez Pulse Ox Last 24 Hr 97.6 F-98.8 F 55-61 20-20 119-150/63-80 97 GENERAL: A&Ox3, NAD HEAD: NCAT EYES: PERRL, Left lateral eye deviation ENT: MMM NECK: Supple, No JVD LUNGS: CTAB, Expiratory wheezes, no crackles HEART: Regular rate and rhythm, S1, S2 without murmur ABDOMEN: Soft, Nontender, Nondistended, + bowel sounds, no guarding, no rebound EXTREMITIES: Trace edema with b/l Varicositys present NEUROLOGICAL: Cranial nerves II through XII grossly intact. SKIN: Warm, dry Laboratory Last Values WBC 4.5 K/mm3 (4.0-10.0) 10/30/19 08:30 RBC 3.81 M/mm3 (4.00-5.60) L 10/30/19 08:30 Hgb 11.4 GM/dL (11.7-16.9) L 10/30/19 08:30 Hct 33.9 % (35.4-49) L 10/30/19 08:30 MCV 88.8 fl (80-96) 10/30/19 08:30 MCH 29.9 pg (25.7-33.7) 10/30/19 08:30 MCHC 33.7 g/dl (32.0-35.9) 10/30/19 08:30 RDW 13.6 % (11.9-15.9) 10/30/19 08:30 Plt Count 166 K/MM3 (134-434) 10/30/19 08:30 MPV 7.5 fl (7.5-11.1) 10/30/19 08:30 Absolute Neuts (auto) 2.8 K/mm3 (1.5-8.0) 10/30/19 08:30 Neutrophils % 62.0 % (42.8-82.8) 10/30/19 08:30 Lymphocytes % 25.6 % (8-40) 10/30/19 08:30 Monocytes % 9.3 % (3.8-10.2) 10/30/19 08:30 Eosinophils % 2.7 % (0-4.5) D 10/30/19 08:30 Basophils % 0.4 % (0-2.0) 10/30/19 08:30 Nucleated RBC % 0 % (0-0) 10/30/19 08:30 PT with INR 13.90 SEC (9.7-13.0) H 10/29/19 06:32 INR 1.18 (0.83-1.09) H 10/29/19 06:32 PTT (Actin FS) 36.0 SECONDS (25.2-36.5) 10/28/19 05:10 VBG pH Cancelled 10/28/19 05:00 POC VBG pCO2 Cancelled 10/28/19 05:00 POC VBG pO2 Cancelled 10/28/19 05:00 VBG HCO3 Cancelled 10/28/19 05:00 VBG O2 Sat (Chen) Cancelled 10/28/19 05:00 VBG Base Excess Cancelled 10/28/19 05:00 Sodium 142 mmol/L (136-145) 10/29/19 06:32 Potassium 4.2 mmol/L (3.5-5.1) 10/29/19 06:32 Chloride 107 mmol/L (98-107) 10/29/19 06:32 Carbon Dioxide 26 mmol/L (21-32) 10/29/19 06:32 Anion Gap 8 MMOL/L (8-16) 10/29/19 06:32 BUN 26.1 mg/dL (7-18) H 10/29/19 06:32 Creatinine 0.9 mg/dL (0.55-1.3) 10/29/19 06:32 Est GFR (CKD-EPI)AfAm 104.24 10/29/19 06:32 Est GFR (CKD-EPI)NonAf 89.94 10/29/19 06:32 POC Glucometer 109 UNITS (80-120) 10/30/19 11:52 Random Glucose 90 mg/dL (74-106) 10/29/19 06:32 Lactic Acid 1.6 mmol/L (0.4-2.0) 10/28/19 05:10 Calcium 8.2 mg/dL (8.5-10.1) L 10/29/19 06:32 Phosphorus 3.5 mg/dL (2.5-4.9) 10/29/19 06:32 Magnesium 2.0 mg/dL (1.8-2.4) 10/29/19 06:32 Total Bilirubin 0.6 mg/dL (0.2-1) 10/29/19 06:32 AST 16 U/L (15-37) 10/29/19 06:32 ALT 19 U/L (13-61) 10/29/19 06:32 Alkaline Phosphatase 45 U/L (45-117) 10/29/19 06:32 Troponin I < 0.02 ng/ml (0.00-0.05) 10/28/19 05:10 Total Protein 6.2 g/dl (6.4-8.2) L 10/29/19 06:32 Albumin 3.0 g/dl (3.4-5.0) L 10/29/19 06:32 Urine Color Yellow 10/28/19 07:30 Urine Color Yellow 10/28/19 07:30 Urine Appearance Clear 10/28/19 07:30 Urine Appearance Clear 10/28/19 07:30 Urine pH 8.5 (5.0-8.0) H 10/28/19 07:30 Urine pH >= 9.0 (5.0-8.0) H 10/28/19 07:30 Ur Specific [place] 1.021 (1.010-1.035) 10/28/19 07:30 Ur Specific [place] 1.021 (1.010-1.035) 10/28/19 07:30 Urine Protein Negative (NEGATIVE) 10/28/19 07:30 Urine Protein Negative (NEGATIVE) 10/28/19 07:30 Urine Glucose (UA) Negative (NEGATIVE) 10/28/19 07:30 Urine Glucose (UA) Negative (NEGATIVE) 10/28/19 07:30 Urine Ketones Negative (NEGATIVE) 10/28/19 07:30 Urine Ketones Negative (NEGATIVE) 10/28/19 07:30 Urine Blood 1+ (NEGATIVE) H 10/28/19 07:30 Urine Blood Trace (NEGATIVE) 10/28/19 07:30 Urine Nitrite Negative (NEGATIVE) 10/28/19 07:30 Urine Nitrite Negative (NEGATIVE) 03/07/20 07:30 Urine Bilirubin Negative (NEGATIVE) 10/28/19 07:30 Urine Bilirubin Negative (NEGATIVE) 10/28/19 07:30 Urine Urobilinogen 0.2 mg/dL (0.2-1.0) 10/28/19 07:30 Urine Urobilinogen 0.2 mg/dL (0.2-1.0) 10/28/19 07:30 Ur Leukocyte Esterase 2+ (NEGATIVE) H 10/28/19 07:30 Ur Leukocyte Esterase 2+ (NEGATIVE) H 10/28/19 07:30 Urine WBC (Auto) 84 /hpf (0-5) 10/28/19 07:30 Urine WBC (Auto) 89 /hpf (0-5) 10/28/19 07:30 Urine RBC (Auto) 6 /hpf (0-4) 10/28/19 07:30 Urine RBC (Auto) 6 /hpf (0-4) 10/28/19 07:30 Urine Casts (Auto) 5 /lpf (0-8) 10/28/19 07:30 Urine Casts (Auto) 6 /lpf (0-8) 10/28/19 07:30 U Epithel Cells (Auto) 0.1 /HPF (0-5/HPF) 10/28/19 07:30 U Epithel Cells (Auto) 0.1 /HPF (0-5/HPF) 10/28/19 07:30 Urine Bacteria (Auto) 1176.1 /hpf (NEGATIVE) 10/28/19 07:30 Urine Bacteria (Auto) 1189.5 /hpf (NEGATIVE) 10/28/19 07:30 Influenza A (Rapid) Negative (Negative) 10/28/19 05:10 Influenza B (Rapid) Negative (Negative) 10/28/19 05:10 RSV Rapid Negative (Negative) 10/28/19 05:10 Microbiology 10/28/19 07:30 Urine - Urine Clean Catch Urine Culture - Final Proteus Mirabilis 10/28/19 06:32 Blood - Peripheral Venous Blood Culture - Preliminary NO GROWTH OBTAINED AFTER 24 HOURS, INCUBATION TO CONTINUE FOR 4 DAYS. 10/28/19 05:10 Blood - Peripheral Venous Blood Culture - Preliminary NO GROWTH OBTAINED AFTER 48 HOURS, INCUBATION TO CONTINUE FOR 3 DAYS. 10/29/19 10:25 Urine For Antigen Detection Legionella Antigen - Final 10/29/19 10:25 Urine For Antigen Detection Streptococcus pneumoniae Antigen (M - Final Active Medications Al Hydroxide/Mg Hydroxide (Mylanta Oral Suspension -) 30 ml PO DAILY [facility] Last Admin: 10/30/19 09:58 Dose: 30 ml Documented by: Amlodipine Besylate (Norvasc -) 10 mg PO DAILY [facility] Last Admin: 10/30/19 09:58 Dose: 10 mg Documented by: Aspirin (Asa -) 81 mg PO DAILY [facility] Last Admin: 10/30/19 09:56 Dose: 81 mg Documented by: Atorvastatin Calcium (Lipitor -) 10 mg PO HS [facility] Last Admin: 10/29/19 21:44 Dose: 10 mg Documented by: Benztropine Mesylate (Cogentin -) 1 mg PO DAILY [facility] Last Admin: 10/30/19 09:58 Dose: 1 mg Documented by: Diphenhydramine HCl (Benadryl Injection -) 50 mg IVPB ONCE PRN PRN Reason: ALLERGIES Divalproex Sodium (Depakote -) 250 mg PO BID [facility] Last Admin: 10/30/19 09:57 Dose: 250 mg Documented by: Docusate Sodium (Colace -) 200 mg PO BID [facility] Last Admin: 10/30/19 09:57 Dose: 200 mg Documented by: Dutasteride (Avodart -) 0.5 mg PO DAILY [facility] Last Admin: 10/30/19 09:57 Dose: 0.5 mg Documented by: Fenofibric Acid (Trilipix -) 135 mg PO HS [facility] Last Admin: 10/29/19 21:43 Dose: 135 mg Documented by: Heparin Sodium (Porcine) (Heparin -) 5,000 unit SQ TID [facility] Last Admin: 10/30/19 05:47 Dose: 5,000 unit Documented by: Ceftriaxone Sodium 1 gm/ (Dextrose) 50 mls @ 200 mls/hr IVPB DAILY [facility]; Protocol Last Admin: 10/30/19 11:03 Dose: 200 mls/hr Documented by: Metronidazole (Flagyl 500mg Premixed Ivpb -) 500 mg in 100 mls @ 100 mls/hr IVPB Q8H-IV [facility] Last Admin: 10/30/19 10:00 Dose: 100 mls/hr Documented by: Insulin Aspart (Novolog Vial Sliding Scale -) 1 vial SQ ACHS [facility]; Protocol Last Admin: 10/30/19 11:53 Dose: Not Given Documented by: Lisinopril (Prinivil) 10 mg PO DAILY [facility] Last Admin: 10/30/19 09:58 Dose: 10 mg Documented by: Lorazepam (Ativan -) 0.5 mg PO BID [facility] Last Admin: 10/30/19 09:56 Dose: 0.5 mg Documented by: [id number] Ethyl Esters (Lovaza -) 2 gm PO BID [facility] Last Admin: 10/30/19 09:58 Dose: 2 gm Documented by: Quetiapine Fumarate 200 mg/ (Quetiapine Fumarate 100 mg) 300 mg PO BID [facility] Last Admin: 10/30/19 09:59 Dose: 300 mg Documented by: Tamsulosin HCl (Flomax -) 0.8 mg PO DAILY [facility] Last Admin: 10/30/19 09:56 Dose: 0.8 mg Documented by: ASSESSMENT/PLAN: 64 y/o M PMHx Intellectual delay, HTN, Anxiety, GERD, DM2, HLD, BPH presenting from [facility] with nonproductive cough, dysuria, hematuria and associated fevers and admitted for Pneumonia. #Nonproductive Cough + Fevers -Likley due to B/L Pneumonia; Aspiration vs CAP as noted on chest imaging -Continue Ceftriaxone and Metronidazole (Abx course started on 10/27) -Isolation (Droplet) Precautions -Follow Cx's -Viral panel pending -Influenza, RSV, Legionella Ag, Strep Ag neg #UTI + ?Hematuria -UA: 1+ blood, 2+ LE, 89 WBCs, 1100+ bacteria -Urine culture reveals Proteus -Continue Ceftriaxone #HTN -Continue Amlodipine, Lisinopril #GERD -Continue Mylanta, #DM2 -ISS BGMo ACHS #HLD -Continue Atorvastatin, Fenofibric Acid, Lovaza #BPH -Continue home dose Tamsulosin, Dutasteride #Mild Intellectual Disability, Anxiety, Mood Disorder Continue home dose Depakote, Lorazepam, Quetiapine #FEN -PO Fluids -Replete lytes PRN -Diabetic/Na restricted Diet #PPx -DVT: Heparin Dispo: Continue to monitor on Med-surg Visit type - Emergency Visit Emergency Visit: Yes ED Registration Date: 10/28/19 Care time: The patient presented to the Emergency Department on the above date and was hospitalized for further evaluation of their emergent condition. - New Patient This patient is new to me today: Yes Date on this admission: 10/30/19 - Critical Care Critical Care patient: No ATTENDING PHYSICIAN STATEMENT I saw and evaluated the patient. I reviewed the resident's note and discussed the case with the resident. I agree with the resident's findings and plan as documented. SUBJECTIVE: OBJECTIVE: ASSESSMENT AND PLAN:
--- NOTE | 2019-10-30 15:10 | PN ---
Progress Note (short form) - Note Progress Note: no fevers feels improved minimal cough still notes some dysuria Vital Signs Period Temp Pulse Resp BP Sys/Vásquez Pulse Ox Last 24 Hr 98.1 F-98.8 F 55-60 20-20 127-150/63-80 97 cor-rrr lungs clear abd soft,nt ext no edema CBC, BMP 10/30/19 08:30 10/29/19 06:32 Microbiology 10/28/19 07:30 Urine - Urine Clean Catch Urine Culture - Final Proteus Mirabilis 10/28/19 06:32 Blood - Peripheral Venous Blood Culture - Preliminary NO GROWTH OBTAINED AFTER 24 HOURS, INCUBATION TO CONTINUE FOR 4 DAYS. 10/28/19 05:10 Blood - Peripheral Venous Blood Culture - Preliminary NO GROWTH OBTAINED AFTER 48 HOURS, INCUBATION TO CONTINUE FOR 3 DAYS. 10/29/19 10:25 Urine For Antigen Detection Legionella Antigen - Final 10/29/19 10:25 Urine For Antigen Detection Streptococcus pneumoniae Antigen (M - Final chest ct noted, minimal infiltrates a/p UTI- will switch to ceftriaxone, qtc .47, fever resolved with levaquin-continue ceftriaxone ?pneumonia- rocephin/flagyl, recently at the dentist- ?aspiration f/u resp virus panel pen allergy noted continue droplet isolation d/w hospitalist
[2019-10-30] MEDS: PANTOPRAZOLE 40 MG TABLET PO SCH (15:38)
[2019-10-30] MEDS ORDERED: INSULIN (NOVOLOG) ASPART 100 UNITS/ML 10ML VIAL ONE (19:43)
[2019-10-30] MEDS: ATORVASTATIN CA 10 MG TABLET (FP) PO SCH (22:21)
[2019-10-30] MEDS: FENOFIBRIC ACID 135 MG CAP PO SCH (22:22)
[2019-10-31] MEDS: HEPARIN NA (PORCINE) 5,000 UNITS/ML 1ML VIAL SQ SCH ×2 (07:30→13:05)
[2019-10-31] MEDS: INSULIN SLIDING SCALE (NOVOLOG) 1 VIAL SQ SCH ×3 (07:30→17:30)
[2019-10-31] MEDS ORDERED: QUEtiapine FUMARATE 100 MG TABLET (FP) ONE (09:05)
[2019-10-31] MEDS ORDERED: QUEtiapine FUMARATE 200 MG TABLET ONE (09:06)
[2019-10-31] MEDS ORDERED: PT OWN MED DRAWER 7, Y5N ONE (09:06)
[2019-10-31] MEDS: MAG HYDROX/AL HYDROX/SIMETH 30 ML UNIT-DOSE CUP PO SCH (09:15)
[2019-10-31] MEDS: QUETIAPINE FUMARATE 200 MG, QUETIAPINE FUMARATE 100 MG PO SCH (09:15)
[2019-10-31] MEDS: DUTASTERIDE 0.5 MG CAP (FP) PO SCH (09:16)
[2019-10-31] MEDS: OMEGA-3 ACID ETHYL ESTERS (FATTY-ACIDS) 1 GM CAPSULE (FP) PO SCH (09:16)
[2019-10-31] MEDS: LISINOPRIL 10 MG TABLET (FP) PO SCH (09:16)
[2019-10-31] MEDS: TAMSULOSIN HCL 0.4 MG CAP PO SCH (09:16)
[2019-10-31] MEDS: PANTOPRAZOLE 40 MG TABLET PO SCH (09:16)
[2019-10-31] MEDS: BENZTROPINE MESYLATE 1 MG TABLET PO SCH (09:16)
[2019-10-31] MEDS: DOCUSATE SODIUM 100 MG CAPSULE (FP) PO SCH (09:16)
[2019-10-31] MEDS: ASPIRIN 81 MG CHEWABLE TABLETS PO SCH (09:16)
[2019-10-31] MEDS: DIVALPROEX SODIUM 250 MG TABLET E.C. PO SCH (09:16)
[2019-10-31] MEDS: amLODIPine BESYLATE 10 MG TABLET (FP) PO SCH (09:16)
[2019-10-31] MEDS: LORazepam 0.5 MG TABLET PO SCH (09:16)
[2019-10-31] MEDS ORDERED: cefTRIAXone SODIUM 1 GM VIAL ONE (11:08)
[2019-10-31] MEDS ORDERED: DEXTROSE 5%-WATER - 50 ML IVPB ONE (11:08)
[2019-10-31] MEDS ORDERED: INSULIN (NOVOLOG) ASPART 100 UNITS/ML 10ML VIAL ONE (11:21)
[2019-10-31] MEDS: CEFTRIAXONE 1 GM in DEXTROSE 5%-WATER - 50 ML IVPB SCH (11:24)
--- NOTE | 2019-10-31 13:28 | PN ---
Progress Note, PHARMACY COORDINATOR - Note Progress Note: Selected Entries 10/30/19 10/30/19 10/30/19 07:00 10:00 12:00 Breakfast 100% Lunch 100% Supper Temperature 98.5 F 98.8 F 10/30/19 10/30/19 10/30/19 14:00 17:35 19:55 Breakfast Lunch Supper 100% Temperature 98.2 F 98.8 F 10/30/19 10/30/19 10/31/19 22:00 22:23 02:22 Breakfast Lunch Supper 100% Temperature 98.1 F 98.1 F 10/31/19 10/31/19 07:36 09:11 Breakfast Lunch Supper Temperature 98.1 F 97.6 F Laboratory Tests 10/30/19 08:30 WBC 4.5 Tolerating diet. No further f/u indicated
--- NOTE | 2019-10-31 15:03 | PN ---
Teaching Attending Note Name of Resident: Gama Quick ATTENDING PHYSICIAN STATEMENT I saw and evaluated the patient. I reviewed the resident's note and discussed the case with the resident. I agree with the resident's findings and plan as documented. SUBJECTIVE: No fever or chills. no N/V . no SOB , occasional cough Physical Exam: Awake, alert, cooperative . externally deviated L eye CV: RRR, NO MRG Lungs: CTAB Abd: soft, NT, ND, NL BS. Ext: trace edema on both lower legs. slight erythema on lower part of legs R > L. . varicose veins on both lower legs and feet. ASSESSMENT AND PLAN: Gary is a 64 y/o man with h/o mild intellectual disability, HTN, mood disorder, DM, HLP, BPH, and other medical problems who presented from [place] with cough and fever. 1- B/l PNA: ? CAP VS Aspiration. - No signs of sepsis any more. condition improved. - awaiting ID Recs regarding Abx, ? po abx - follow blood cx ( negative 48 hr ) - full resp viral panel is pending 2- UTI: Urine cx with proteus - Abx per ID Recs 3- HTN: cont Norvasc and Lisinopril 4- Decreased sensation in RLE: unclear etiology. could be due to back/disc problem - out pt work up 5- H/o Mood disorder: cont divalproex and seroquel and Lorazepam 5- SQ heparin for DVT px . dispo : hopefully we can dc today if PO Abx can be used .
--- NOTE | 2019-10-31 16:02 | PN ---
Progress Note (short form) - Note Progress Note: no fevers since admission overall improved Vital Signs Period Temp Pulse Resp BP Sys/Vásquez Pulse Ox Last 24 Hr 97.6 F-98.8 F 56-60 16-20 126-160/67-85 98-98 cor-rrr llungs clear abd soft,nt ext no edema Microbiology 10/28/19 07:30 Urine - Urine Clean Catch Urine Culture - Final Proteus Mirabilis 10/28/19 06:32 Blood - Peripheral Venous Blood Culture - Preliminary NO GROWTH OBTAINED AFTER 24 HOURS, INCUBATION TO CONTINUE FOR 4 DAYS. 10/28/19 05:10 Blood - Peripheral Venous Blood Culture - Preliminary NO GROWTH OBTAINED AFTER 48 HOURS, INCUBATION TO CONTINUE FOR 3 DAYS. 10/29/19 10:25 Urine For Antigen Detection Legionella Antigen - Final 10/29/19 10:25 Urine For Antigen Detection Streptococcus pneumoniae Antigen (M - Final chest ct noted, minimal infiltrates a/p UTI- proteus probable pneumonia doing well afebrile since admission can switch to po ceftin 500 bid to complete 10 days for UTI finish 7 days of flagyl 500 tid as well pen allergy noted
--- NOTE | 2019-10-31 17:01 | DS ---
Physical Exam: SUBJECTIVE: Patient seen and examined in the morning. Patient had no acute events. Patient only complains of difficulty sleeping while in the hospital and dysuria. He has no complaints of shortness of breath, chest pain, abdominal pain, nausea, vomiting, diarrhea. OBJECTIVE: Vital Signs Period Temp Pulse Resp BP Sys/Vásquez Pulse Ox Last 24 Hr 97.6 F-98.8 F 56-60 16-20 126-160/67-85 98-98 PHYSICAL EXAM GENERAL: The patient is awake, alert, and fully oriented, in no acute distress. HEAD: Normal with no signs of trauma. EYES: PERRLA, left lateral eye deviation. ENT:Moist mucous membranes LUNGS: Breath sounds equal, clear to auscultation bilaterally, no wheezes, no cr ackles HEART: Regular rate and rhythm, S1, S2 without murmur, rub or gallop. ABDOMEN: Soft, nontender, nondistended, normoactive bowel sounds, no guarding, no rebound. EXTREMITIES: 2+ pulses, warm, well-perfused, no edema. NEUROLOGICAL: Cranial nerves II through XII grossly intact. PSYCH: Normal mood, normal affect. SKIN: Warm, dry, normal turgor, no rashes or lesions noted. LABS Laboratory Results - last 24 hr 10/30/19 10/31/19 10/31/19 22:31 07:28 11:29 POC Glucometer 130 116 126 Microbiology 10/28/19 06:32 Blood - Peripheral Venous Blood Culture - Preliminary NO GROWTH OBTAINED AFTER 48 HOURS, INCUBATION TO CONTINUE FOR 3 DAYS. 10/28/19 05:10 Blood - Peripheral Venous Blood Culture - Preliminary NO GROWTH OBTAINED AFTER 72 HOURS, INCUBATION TO CONTINUE FOR 2 DAYS. HOSPITAL COURSE: Date of Admission:10/28/19 Date of Discharge: 10/31/19 64 y/o M PMHx Intellectual delay, HTN, Anxiety, GERD, DM2, HLD, BPH presenting from [facility] with nonproductive cough, dysuria, hematuria and associated fevers and admitted for Pneumonia. Patient was treated with Ceftriaxone IV and Flagyl IV. He had chest X-Ray completed which showed a [address] showed infiltrate throughout the right middle lobe and left upper lung. He had urinary culture test positive for Proteus Mirabilis. Patient had improvement in his cough, but he had persistent dysuria. He is stable for oral antibiotics. His flu and rapid RSV was negative. Imaging: Chest X-Ray: Impression: No definite findings of acute infiltrate or edema, there is a 10 mm nodule noted in the right lower lobe, recommend CT chest for further evaluation. Chest CT: Nonspecific patchy areas of infiltrate involving right middle and left upper and lower lungs. Correlation with history of physical exam would prove useful better evaluating these findings. Minutes to complete discharge: 30 Discharge Summary Problems reviewed: Yes Reason For Visit: PNEUMONIA Current Active Problems Cough (Acute) Pneumonia (Acute) Condition: Improved - Instructions Diet, Activity, Other Instructions: Mr. Wilson was admitted to the hospital for treatment of pneumonia and urinary tract infection. He was tested for flu which he was negative for, and other common respiratory infections; the results of which are pending. If he has any positives from that panel we will call and update your facility. He is now stable and can continue his antibiotic treatment as an outpatient. Please continue the following new medications for Mr. Wilson: Flagyl 500 mg,every 8 hours , by mouth for the next 5 days. His last dose will be in the evening on 11/05/2019. Ceftin 500 mg, every 12 hours , by mouth for the next 7 days. His last dose will be in the evening on 11/07/2019. We have not changed his other home medications, please continue them as directed. Please follow up with your primary care physician, Dr. Carreon within 1 week. Return to the Emergency Department if you have shortness of breath, chest pain, nausea, vomiting, diarrhea, or high fevers. Referrals: Jayce Carreon MD [Primary Care Provider] - Disposition: [facility] FACILITY - Home Medications Comprehensive Discharge Medication List: Ambulatory Orders Amlodipine Besylate [Norvasc -] 10 mg PO DAILY 10/28/19 Aspirin 1 tab PO DAILY 10/28/19 Atorvastatin Calcium [Lipitor] 10 mg PO HS 10/28/19 Benztropine Mesylate [Cogentin -] 1 mg PO DAILY 10/28/19 Divalproex [Depakote -] 250 mg PO BID 10/28/19 Docusate Sodium [Docusate 100 mg] 200 mg PO BID 10/28/19 Dutasteride 1 cap PO DAILY 10/28/19 Fenofibrate Nanocrystallized [Fenofibrate] 1 tab PO HS 10/28/19 LORazepam [Lorazepam] 1 mg PO BID 10/28/19 Lisinopril 10 mg PO DAILY 10/28/19 Mag Hydrox/Aluminum Hyd/Simeth [Lesly-Lanta Liquid] 30 ml PO ASDIR 10/28/19 Metformin HCl [Glucophage] 500 mg PO DAILY 10/28/19 [place]-3/Dha/Epa/Fish Oil [Fish Oil 1,000 mg Softgel] 2 each PO BID 10/28/19 Quetiapine Fumarate [Seroquel -] 300 mg PO BID 10/28/19 Tamsulosin HCl [Flomax] 0.8 mg PO DAILY 10/28/19 Cholecalciferol (Vitamin D3) [Vitamin D3] 5,000 unit PO DAILY 10/30/19 Divalproex [Depakote -] 500 mg PO BID 10/30/19 Propylene Glycol/Peg 400/Pf [Systane 0.3-0.4% Eye Drop] 1 each OP QID PRN 10/30/19 Cefuroxime Axetil [Ceftin -] 500 mg PO Q12H #14 tablet 10/31/19 metroNIDAZOLE [Flagyl -] 500 mg PO Q8H #5 tablet 10/31/19 This patient is new to me today: Yes Date on this admission: 10/31/19 Emergency Visit: Yes ED Registration Date: 10/28/19 Care time: The patient presented to the Emergency Department on the above date and was hospitalized for further evaluation of their emergent condition. Critical Care patient: No - Discharge Referral Referred to [facility] No ATTENDING PHYSICIAN STATEMENT I saw and evaluated the patient. I reviewed the resident's note and discussed the case with the resident. I agree with the resident's findings and plan as documented. SUBJECTIVE: OBJECTIVE: ASSESSMENT AND PLAN:
[2019-10-31 17:28] VITALS: BP 137/72; PULSE 68; TEMP 98.2
== END 2019-10-31 18:47 | disposition home or self-care (01) | DRG 194 ==
LOC: JER 04:20 → SUPCPDRO 04:20 → JERBED 07:15 → J7W 13:23 → J8W 18:19
PROVIDERS: ADMIT Internal Medicine; ATTEND Internal Medicine
DX: J18.9 Pneumonia, unspecified organism (principal); N39.0 Urinary tract infection, site not specified; I10 Essential (primary) hypertension; E11.9 Type 2 diabetes mellitus without complications; E78.5 Hyperlipidemia, unspecified; K21.9 Gastro-esophageal reflux disease without esophagitis; F41.9 Anxiety disorder, unspecified; R26.9 Unspecified abnormalities of gait and mobility; N40.0 Benign prostatic hyperplasia without lower urinary tract symptoms; F81.9 Developmental disorder of scholastic skills, unspecified; F39 Unspecified mood [affective] disorder; B96.4 Proteus (mirabilis) (morganii) as the cause of diseases classified elsewhere
CPT/HCPCS: 36415; 71045-TC-FY; 71250-TC; 80053; 81003; 82962; 83605; 83735; 84100; 84484; 85025; 85610; 85730; 87040; 87086; 87186; 87254; 87633; 87804; 87807; 87899; 93005; 93010; 97116-GP; 97161-GP; 99285-25; J0131; J1644; J7030

== ENCOUNTER 2020-04-10 10:07 | Emergency (ER) | payer OTHER ==
[2020-04-10 11:14] VITALS: PULSE 79; TEMP 98.3; BMI 34.2
[2020-04-10 11:38] LABS: BASO % 0.4 % (0-2.0); EOS % 1.2 % (0-4.5); HEMOGLOBIN 13.1 GM/dL (11.7-16.9); LYMPH % 25.2 % (8-40); MCH 29.8 pg (25.7-33.7); MCHC 33.6 g/dl (32.0-35.9); MEAN CELL VOLUME 88.5 fl (80-96); MEAN PLT VOLUME 8.5 fl (7.5-11.1); MONO % 7.5 % (3.8-10.2); NEUT % 65.7 % (42.8-82.8); PLATELET COUNT 153 K/MM3 (134-434); RBC 4.41 M/mm3 (4.00-5.60); WHITE BLOOD COUNT 4.3 K/mm3 (4.0-10.0)
[2020-04-10 12:09] LABS: ALBUMIN 3.3 g/dl (3.4-5.0); ALK PHOS 93 U/L (45-117); ANION GAP 8 MMOL/L (8-16); BILIRUBIN,TOTAL 0.4 mg/dL (0.2-1); BLOOD UREA NITROGEN 31.9 mg/dL (7-18); CALCIUM 9.2 mg/dL (8.5-10.1); CHLORIDE 107 mmol/L (98-107); CO2 27 mmol/L (21-32); CREATININE 1.4 mg/dL (0.55-1.3); GLUCOSE,RANDOM 88 mg/dL (74-106); POTASSIUM 4.4 mmol/L (3.5-5.1); SGOT/AST 35 U/L (15-37); SGPT/ALT 32 U/L (13-61); SODIUM 141 mmol/L (136-145); TOT PROT 6.8 g/dl (6.4-8.2)
[2020-04-10] MEDS ORDERED: SODIUM CHLORIDE 500 ML IV STA (12:19)
--- NOTE | 2020-04-10 12:49 | EKG ---
Test Reason : Blood Pressure : / mmHG Vent. 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
--- NOTE | 2020-04-10 12:58 | PDOC ---
Documentation entered by Hermes Jaime SCRIBE, acting as scribe for Theodore Alex MD. Theodore Alex MD: This documentation has been prepared by the Yeni hernandez Xhesika, SCRIBE, under my direction and personally reviewed by me in its entirety. I confirm that the documentation accurately reflects all work, treatment, procedures, and medical decision making performed by me. History of Present Illness - General Chief Complaint: Syncope/Near Syncope Stated Complaint: SYNCOPE Time Seen by Provider: 04/10/20 10:36 History Source: Patient Exam Limitations: No Limitations - History of Present Illness Initial Comments: 04/10/20 10:47 The patient is a 64y/o M with h/o NIDDM, HTN who presents to the ED BIBA from [facility] s/p [facility]. Pt states he was bathing this morning, his legs got stiff and he fell from standing. Pt denies hitting his head or LOC. Pt states he ambulates with a walker at baseline. Pt reports he had a headache earlier but has since resolved. Pt denies any pain while in the ED. The patient denies chest pain, shortness of breath, headache and dizziness. Denies fever, chills, cough, nausea, vomiting, diarrhea and constipation. Denies dysuria, frequency, urgency and hematuria. Allergies: Penicillins Past History - Medical History Allergies/Adverse Reactions: Allergies Allergy/AdvReac Type Severity Reaction Status Date / Time Penicillins Allergy Verified 04/10/20 10:25 Home Medications: Ambulatory Orders Amlodipine Besylate [Norvasc -] 10 mg PO DAILY 10/28/19 Aspirin 1 tab PO DAILY 10/28/19 Atorvastatin Calcium [Lipitor] 10 mg PO HS 10/28/19 Benztropine Mesylate [Cogentin -] 1 mg PO DAILY 10/28/19 Divalproex [Depakote -] 250 mg PO BID 10/28/19 Docusate Sodium [Docusate 100 mg] 200 mg PO BID 10/28/19 Dutasteride 1 cap PO DAILY 10/28/19 Fenofibrate Nanocrystallized [Fenofibrate] 1 tab PO HS 10/28/19 LORazepam [Lorazepam] 1 mg PO BID 10/28/19 Lisinopril 10 mg PO DAILY 10/28/19 Mag Hydrox/Aluminum Hyd/Simeth [Lesly-Lanta Liquid] 30 ml PO ASDIR 10/28/19 Metformin HCl [Glucophage] 500 mg PO DAILY 10/28/19 [place]-3/Dha/Epa/Fish Oil [Fish Oil 1,000 mg Softgel] 2 each PO BID 10/28/19 Quetiapine Fumarate [Seroquel -] 300 mg PO BID 10/28/19 Tamsulosin HCl [Flomax] 0.8 mg PO DAILY 10/28/19 Cholecalciferol (Vitamin D3) [Vitamin D3] 5,000 unit PO DAILY 10/30/19 Divalproex [Depakote -] 500 mg PO BID 10/30/19 Propylene Glycol/Peg 400/Pf [Systane 0.3-0.4% Eye Drop] 1 each OP QID PRN 05/12 COPD: No Diabetes: Yes GI Disorders: Yes (GERD) Disorders: Yes (BPH) HTN: Yes Hypercholesterolemia: Yes Psychiatric Problems: Yes (DEPRESSION,ANXIETY) Seizures: Yes Other medical history: DEVELOPMENTAL DELAY - Psycho-Social/Smoking History Smoking History: Never smoked Have you smoked in the past 12 months: No - Substance Abuse Hx (Audit-C & DAST Scrn) How often the patient has a drink containing alcohol: Never Score: In Men: 4 or > Positive; In Women: 3 or > Positive: 0 Screen Result (Pos requires Nsg. Audit-10AR): Negative In the last yr the pt used illegal drug/Rx for NonMed reason: No Score: Yes response is considered Positive: 0 Screen Result (Positive result requires Nsg. DAST-10): Negative Review of Systems - Review of Systems Able to Perform ROS?: Yes Comments:: 04/10/20 10:48 CONSTITUTIONAL: No fever, no chills, no fatigue. +presents s/p fall EYES: No visual changes ENT: No ear pain, no sore throat CARDIOVASCULAR: No chest pain, no palpitations RESPIRATORY: No cough, no SOB GI: No abdominal pain, no nausea, no vomiting, no constipation, no diarrhea GENITOURINARY: No dysuria, no frequency, no hematuria MUSKULOSKELETAL: No backpain, no joint pain, no myalgias SKIN: No rash NEURO: No headache *Physical Exam - Vital Signs Last Vital Signs Temp Pulse Resp BP Pulse Ox 98.3 F 79 20 108/68 94 L 04/10/20 10:25 04/10/20 10:25 04/10/20 10:25 04/10/20 10:25 04/10/20 10:25 - Physical Exam 04/10/20 12:50 EXAMINATION CONSTITUTIONAL: Awake, aert; obese; in no apparent distress HEAD: Normocephalic; atraumatic EYES: PERRL; left ptosis, wih left eye deviated to the left (old); no ystagmus ENMT: External appears normal; mm-dry NECK: Supple; non-tender; no cervical lymphadenopathy CARD: Normal S1, S2; 2/6 se murmurs, no rubs, or gallops RESP: Normal chest excursion with respiration; breath sounds clear and equal bilaterally; no wheezes, rhonchi, or rales ABD: Soft, non-distended; non-tender; no palpable organomegaly, no palpable hernias PELVIS: stable EXT: Normal passive ROM in all four extremities; non-tender to palpation; distal pulses intact SKIN: Warm, dry, no rash NEURO: follows commands; motor: UEs: 5/5 b/l; LEs: 3/5 b/l Heart Score/ECG Review - ECG Impressions Comment:: 04/10/20 12:29 EKG performed at 10:23 demonstrates rate of 80bpm. Sinus rhythm with 1st degree AV block with premature atrial complexes. Left axis deviation. Minimal voltage criteria for LVH. ED Treatment Course - LABORATORY CBC & Chemistry Diagram: 04/10/20 11:15 04/10/20 11:15 Medical Decision Making - Medical Decision Making 04/10/20 12:56 Patient is a 65-year-old male with multiple comorbidities who presents from a long-term after a fall without head injury or LOC. In the ER, patient is awake and alert, nontoxic-appearing, hemodynamically stable. There is no indication for radiological evaluation of head/cervical spine/chest/abdomen/pelvis at this time. Serial abdominal exams reveal no focal tenderness. Patient is at baseline. CBC is within normal limit. CMP reveals mildly elevated BUN/c reatinine. Patient is currently receiving IV fluids. Will discharge. Discharge - Discharge Information Problems reviewed: Yes Clinical Impression/Diagnosis: Dehydration Fall Qualifiers: Encounter type: initial encounter Qualified Code(s): W19.XXXA - Unspecified fall, initial encounter Condition: Stable Disposition: HOME - Follow up/Referral Referrals: Vasu Carreon Jr [Primary Care Provider] - - Patient Discharge Instructions Patient Printed Discharge Instructions: DI for Muscle Weakness - Post Discharge Activity
[2020-04-10 13:29] VITALS: BP 135/75
== END 2020-04-10 14:03 | disposition home or self-care (01) ==
LOC: JER 10:07
DX: E86.0 Dehydration (principal); W19.XXXA Unspecified fall, initial encounter
CPT/HCPCS: 36415; 80053; 82550; 82962; 84484; 85025; 93005; 93010; 99284-25

== ENCOUNTER 2020-07-11 13:23 | Emergency (ER) | payer OTHER ==
[2020-07-11 13:59] VITALS: BP 118/69; PULSE 68; TEMP 98.6; BMI 40.6
[2020-07-11 14:39] LABS: PH,URINE 7.5 (5.0-8.0); URINE APPEARANCE CLEAR; URINE BILIRUBIN NEGATIVE (NEGATIVE); URINE COLOR YELLOW; URINE GLUCOSE (UA) NEGATIVE (NEGATIVE); URINE KETONE NEGATIVE (NEGATIVE); URINE LEUK ESTERASE NEGATIVE (NEGATIVE); URINE NITRITE NEGATIVE (NEGATIVE); URINE PROTEIN NEGATIVE (NEGATIVE); URINE UROBILINOGEN 0.2 mg/dL (0.2-1.0)
[2020-07-11 14:46] LABS: BASO % 0.6 % (0-2.0); EOS % 1.5 % (0-4.5); HEMATOCRIT 42.2 % (35.4-49); HEMOGLOBIN 13.8 GM/dL (11.7-16.9); LYMPH % 43.3 % (8-40); MCHC 32.8 g/dl (32.0-35.9); MEAN CELL VOLUME 88.4 fl (80-96); MONO % 8.9 % (3.8-10.2); NEUT % 45.7 % (42.8-82.8); PLATELET COUNT 109 K/MM3 (134-434); RBC 4.77 M/mm3 (4.00-5.60); RDW 14.3 % (11.9-15.9); WHITE BLOOD COUNT 3.2 K/mm3 (4.0-10.0)
[2020-07-11 15:07] LABS: ALBUMIN 3.4 g/dl (3.4-5.0); CALCIUM 8.9 mg/dL (8.5-10.1)
[2020-07-11 15:11] LABS: CREATININE 1.1 mg/dL (0.55-1.3)
[2020-07-11 15:13] LABS: BILIRUBIN,TOTAL 0.7 mg/dL (0.2-1); TOT PROT 6.8 g/dl (6.4-8.2)
== END 2020-07-11 16:07 ==
LOC: JER 13:23
DX: R33.9 Retention of urine, unspecified (principal); R30.0 Dysuria
CPT/HCPCS: 36415; 80053; 81003; 85025; 87086; 99283-25

== ENCOUNTER 2020-11-01 12:05 | Emergency (ER) | payer OTHER ==
[2020-11-01 12:10] VITALS: BMI 40.6
[2020-11-01 13:52] LABS: BASO % 0.3 % (0-2.0); EOS % 1.5 % (0-4.5); HEMOGLOBIN 13.2 GM/dL (11.7-16.9); LYMPH % 45.4 % (8-40); MEAN PLT VOLUME 8.1 fl (7.5-11.1); MONO % 9.1 % (3.8-10.2); NEUT % 43.7 % (42.8-82.8); PLATELET COUNT 115 K/MM3 (134-434); RDW 14.6 % (11.9-15.9); WHITE BLOOD COUNT 3.2 K/mm3 (4.0-10.0)
[2020-11-01 13:54] LABS: CHLORIDE 107 mmol/L (98-107); POTASSIUM 4.3 mmol/L (3.5-5.1); SODIUM 141 mmol/L (136-145)
[2020-11-01 13:56] LABS: CALCIUM 9.4 mg/dL (8.5-10.1)
[2020-11-01 13:57] LABS: ALBUMIN 3.2 g/dl (3.4-5.0); ANION GAP 5 MMOL/L (8-16); BLOOD UREA NITROGEN 24.7 mg/dL (7-18); CO2 30 mmol/L (21-32); GLUCOSE,RANDOM 82 mg/dL (74-106)
[2020-11-01 13:58] LABS: CHOLESTEROL 102 mg/dL (50-200)
[2020-11-01 13:59] LABS: TRIGLYCERIDES 81 mg/dL (0-150)
[2020-11-01 14:00] LABS: LDL CHOLESTEROL (ONLY SJRH) 62 mg/dL (5-100); SGOT/AST 31 U/L (15-37); SGPT/ALT 34 U/L (13-61)
[2020-11-01 14:01] LABS: BILIRUBIN,TOTAL 0.5 mg/dL (0.2-1); HDL CHOLESTEROL 29 mg/dL (40-60); INR 1.17 (0.83-1.09); PROTHROMBIN TIME (PATIENT) 14.1 SEC (9.7-13.0); TOT PROT 6.9 g/dl (6.4-8.2)
[2020-11-01 14:03] LABS: ALK PHOS 56 U/L (45-117)
[2020-11-01 14:04] LABS: ACTIVATED PTT 36.8 SECONDS (25.2-36.5)
[2020-11-01 18:46] LABS: EPI CELLS 13 /uL (0-25.1); HYALINE CASTS 2 /uL (0-3.1); PH,URINE 8.5 (5.0-8.0); URINE APPEARANCE TURBID; URINE BACTERIA 605 /uL (0-1359); URINE BILIRUBIN NEGATIVE (NEGATIVE); URINE COLOR YELLOW; URINE GLUCOSE (UA) NEGATIVE (NEGATIVE); URINE KETONE NEGATIVE (NEGATIVE); URINE LEUK ESTERASE 1+ (NEGATIVE); URINE NITRITE NEGATIVE (NEGATIVE); URINE PROTEIN NEGATIVE (NEGATIVE); URINE RBC 15 /uL (0-23.9); URINE UROBILINOGEN 0.2 mg/dL (0.2-1.0); URINE WBC 78 /uL (0-25.8)
[2020-11-01 20:09] VITALS: BP 152/65; PULSE 71; TEMP 97.7
== END 2020-11-01 20:09 ==
LOC: JER 12:05
DX: R53.1 Weakness (principal)
CPT/HCPCS: 36415; 70450-TC; 70544-TC; 70547-TC; 70551-TC; 80053; 80061; 81003; 82550; 83721; 84484; 85025; 85610; 85730; 93005; 93010; 99284-25

== ENCOUNTER 2023-01-19 10:23 | Inpatient (IN) | payer OTHER ==
[2023-01-19 10:34] VITALS: BMI 35.3
[2023-01-19] MEDS ORDERED: ALBUTEROL SO4 2.5/IPRATROPIUM 0.5 INH SOL 3 ML VIAL.NEB. NEB ONE ×3 (10:51→10:52)
[2023-01-19] MEDS ORDERED: SODIUM CHLORIDE 0.9% 500 ML INFUS.BAG IV ONE (10:53)
[2023-01-19 11:16] LABS: BASO % 0.2 % (0-2.0); EOS % 0.8 % (0-4.5); HEMATOCRIT 36.7 % (35.4-49); HEMOGLOBIN 12.4 GM/dL (11.7-16.9); MCH 29.3 pg (25.7-33.7); MCHC 33.9 g/dl (32.0-35.9); MEAN CELL VOLUME 86.5 fl (80-96); MEAN PLT VOLUME 7.5 fl (7.5-11.1); MONO % 10.4 % (3.8-10.2); NEUT % 65.6 % (42.8-82.8); PLATELET COUNT 121 10^3/uL (134-434); RBC 4.24 M/mm3 (4.00-5.60); RDW 14.7 % (11.9-15.9); VENOUS BASE EXCESS 0.1 mmol/L (-2-2); VENOUS O2 SATURATION 57.6 % (70-80); VENOUS PH 7.32 (7.310-7.410); WHITE BLOOD COUNT 4.7 K/mm3 (4.0-10.0)
[2023-01-19 11:26] LABS: INR 1.21 (0.83-1.09)
[2023-01-19 11:29] LABS: ACTIVATED PTT 30.7 SECONDS (25.2-36.5)
[2023-01-19 11:33] LABS: POTASSIUM 4.2 mmol/L (3.5-5.1)
[2023-01-19 11:35] LABS: CALCIUM 8.3 mg/dL (8.5-10.1)
[2023-01-19 11:36] LABS: BLOOD UREA NITROGEN 28.8 mg/dL (7-18)
[2023-01-19 11:39] LABS: CREATININE 0.6 mg/dL (0.55-1.3)
[2023-01-19 11:40] LABS: BILIRUBIN,TOTAL 0.5 mg/dL (0.2-1); TOT PROT 6.1 g/dl (6.4-8.2)
[2023-01-19 11:45] LABS: ALBUMIN 2.8 g/dl (3.4-5.0)
[2023-01-19] MEDS ORDERED: ACETAMINOPHEN 1000 MG/100 ML BAG IVPB ONE (12:10)
[2023-01-19] MEDS ORDERED: ACETAMINOPHEN INJECTION 100 ML IVPB ONE (12:14)
[2023-01-19] MEDS ORDERED: AZITHROMYCIN IVPB 500 MG in DEXTROSE 5%-WATER - 250 ML IVPB ONE (14:11)
[2023-01-19] MEDS ORDERED: CEFTRIAXONE 1 GM in DEXTROSE 5%-WATER - 100 ML IVPB ONE (14:11)
[2023-01-19] MEDS ORDERED: CEFTRIAXONE 1 GM/50 ML BAG ONE (14:27)
[2023-01-19] MEDS ORDERED: ENOXAPARIN NA (PORCINE) 60 MG/0.6 ML DISP.SYRIN SQ ONE ×2 (15:00→15:05)
[2023-01-19] MEDS: INSULIN SLIDING SCALE (NOVOLOG) 1 VIAL SQ SCH ×2 (18:42→21:32)
[2023-01-19] MEDS ORDERED: BENZOCAINE/MENTH/CETYLPYRD CL 1 EACH LOZENGE MM ONE ×2 (20:50→22:00)
[2023-01-19] MEDS: LORazepam 1 MG TABLET PO SCH (21:30)
[2023-01-19] MEDS: QUEtiapine FUMARATE 100 MG TABLET (FP) PO SCH (21:31)
[2023-01-19] MEDS: FAMOTIDINE 20 MG TABLET PO SCH (21:31)
[2023-01-19] MEDS: DIVALPROEX SODIUM 500 MG TABLET E.C. PO SCH (21:31)
[2023-01-19] MEDS: ATORVASTATIN CA 10 MG TABLET (FP) PO SCH (21:31)
[2023-01-19] MEDS: ENOXAPARIN SQ SCH (21:31)
[2023-01-19] MEDS ORDERED: ENOXAPARIN NA (PORCINE) 40 MG/0.4 ML DISP.SYRIN SQ SCH (22:00)
[2023-01-19] MEDS: DIVALPROEX SODIUM 250 MG TABLET E.C. PO SCH (22:09)
[2023-01-19 23:39] LABS: EPI CELLS 4 /uL (0-25.1); HYALINE CASTS 0 /uL (0-3.1); PH,URINE 5.5 (5.0-8.0); URINE APPEARANCE CLEAR; URINE BILIRUBIN NEGATIVE (NEGATIVE); URINE COLOR DK YELLOW; URINE GLUCOSE (UA) NEGATIVE (NEGATIVE); URINE KETONE NEGATIVE (NEGATIVE); URINE LEUK ESTERASE TRACE (NEGATIVE); URINE NITRITE POSITIVE (NEGATIVE); URINE PROTEIN NEGATIVE (NEGATIVE); URINE RBC 13 /uL (0-23.9); URINE WBC 60 /uL (0-25.8)
[2023-01-20] MEDS: INSULIN SLIDING SCALE (NOVOLOG) 1 VIAL SQ SCH ×4 (06:02→21:40)
[2023-01-20] MEDS: TAMSULOSIN HCL 0.4 MG CAP PO SCH (07:48)
[2023-01-20 08:14] LABS: BASO % 0.2 % (0-2.0); HEMATOCRIT 35.7 % (35.4-49); HEMOGLOBIN 11.9 GM/dL (11.7-16.9); LYMPH % 20.1 % (8-40); MCH 28.8 pg (25.7-33.7); MCHC 33.3 g/dl (32.0-35.9); MEAN CELL VOLUME 86.4 fl (80-96); MEAN PLT VOLUME 7.7 fl (7.5-11.1); MONO % 11.3 % (3.8-10.2); NEUT % 67.4 % (42.8-82.8); PLATELET COUNT 134 10^3/uL (134-434); RBC 4.13 M/mm3 (4.00-5.60); RDW 14.5 % (11.9-15.9)
[2023-01-20 08:40] LABS: POTASSIUM 4.1 mmol/L (3.5-5.1)
[2023-01-20 08:54] LABS: ALBUMIN 2.6 g/dl (3.4-5.0); BLOOD UREA NITROGEN 17.6 mg/dL (7-18); CALCIUM 8.5 mg/dL (8.5-10.1)
[2023-01-20 08:57] LABS: CREATININE 0.5 mg/dL (0.55-1.3); PHOSPHOROUS 2.8 mg/dL (2.5-4.9)
[2023-01-20 08:59] LABS: BILIRUBIN,TOTAL 0.6 mg/dL (0.2-1); TOT PROT 6.2 g/dl (6.4-8.2)
[2023-01-20] MEDS: CEFTRIAXONE 1 GM in DEXTROSE 5%-WATER - 50 ML IVPB SCH (09:58)
[2023-01-20] MEDS ORDERED: AZITHROMYCIN IVPB 250 MG in DEXTROSE 5%-WATER - 250 ML IVPB SCH (10:00)
[2023-01-20] MEDS ORDERED: CEFTRIAXONE 1,000 MG in DEXTROSE 5%-WATER - 50 ML IVPB SCH (10:00)
[2023-01-20] MEDS: LORazepam 1 MG TABLET PO SCH ×2 (10:02→21:30)
[2023-01-20] MEDS: DIVALPROEX SODIUM 500 MG TABLET E.C. PO SCH ×2 (10:02→21:31)
[2023-01-20] MEDS: amLODIPine BESYLATE 10 MG TABLET (FP) PO SCH (10:02)
[2023-01-20] MEDS: LISINOPRIL 10 MG TABLET PO SCH (10:02)
[2023-01-20] MEDS: FAMOTIDINE 20 MG TABLET PO SCH ×2 (10:02→21:30)
[2023-01-20] MEDS: QUEtiapine FUMARATE 100 MG TABLET (FP) PO SCH ×2 (10:03→21:30)
[2023-01-20] MEDS: ENOXAPARIN SQ SCH (10:04)
[2023-01-20] MEDS: DIVALPROEX SODIUM 250 MG TABLET E.C. PO SCH ×2 (10:04→21:30)
[2023-01-20] MEDS: DOXYCYCLINE INJECTION 100 MG in DEXTROSE 5%-WATER 100 ML IVPB SCH ×2 (10:33→21:29)
[2023-01-20] MEDS: DUTASTERIDE 0.5 MG CAP (FP) PO SCH (11:01)
[2023-01-20] MEDS: ATORVASTATIN CA 10 MG TABLET (FP) PO SCH (21:30)
[2023-01-20] MEDS ORDERED: ENOXAPARIN NA (PORCINE) 120 MG/0.8 ML DISP.SYRIN SQ SCH (22:00)
[2023-01-20] MEDS ORDERED: APIXABAN 5 MG TABLET PO SCH (22:00)
[2023-01-21] MEDS: INSULIN SLIDING SCALE (NOVOLOG) 1 VIAL SQ SCH ×4 (06:24→21:39)
[2023-01-21 08:45] LABS: HEMATOCRIT 34.7 % (35.4-49); HEMOGLOBIN 11.7 GM/dL (11.7-16.9); MCH 29.1 pg (25.7-33.7); MCHC 33.7 g/dl (32.0-35.9); MEAN CELL VOLUME 86.5 fl (80-96); MEAN PLT VOLUME 7.6 fl (7.5-11.1); PLATELET COUNT 142 10^3/uL (134-434); RBC 4.01 M/mm3 (4.00-5.60); RDW 14.6 % (11.9-15.9); WHITE BLOOD COUNT 5.1 K/mm3 (4.0-10.0)
[2023-01-21 09:07] LABS: CHLORIDE 106 mmol/L (98-107); SODIUM 142 mmol/L (136-145)
[2023-01-21 09:12] LABS: ALBUMIN 2.6 g/dl (3.4-5.0); ANION GAP 5 MMOL/L (8-16); CALCIUM 8.7 mg/dL (8.5-10.1); CO2 32 mmol/L (21-32); GLUCOSE,RANDOM 89 mg/dL (74-106); MAGNESIUM 2.1 mg/dL (1.8-2.4)
[2023-01-21 09:13] LABS: BLOOD UREA NITROGEN 14.6 mg/dL (7-18)
[2023-01-21 09:15] LABS: SGPT/ALT < 6 U/L (13-61)
[2023-01-21 09:16] LABS: CREATININE 0.5 mg/dL (0.55-1.3); SGOT/AST 9 U/L (15-37)
[2023-01-21 09:17] LABS: BILIRUBIN,TOTAL 0.5 mg/dL (0.2-1); TOT PROT 5.8 g/dl (6.4-8.2)
[2023-01-21 09:18] LABS: ALK PHOS 54 U/L (45-117)
[2023-01-21 09:44] LABS: ANISOCYTOSIS 0; HELMET CELLS 0; HOWELL-JOLLY BODIES 0; MACROCYTOSIS 0; OVALOCYTE 0; ROULEAU 0; SICKELED CELLS 0; TARGET CELLS 0; TEAR DROP CELLS 0; TOXIC GRANULATION 0
[2023-01-21] MEDS: CEFTRIAXONE 1 GM in DEXTROSE 5%-WATER - 50 ML IVPB SCH (10:11)
[2023-01-21] MEDS: DOXYCYCLINE INJECTION 100 MG in DEXTROSE 5%-WATER 100 ML IVPB SCH ×2 (10:12→21:29)
[2023-01-21] MEDS: APIXABAN 5 MG TABLET PO SCH ×2 (10:12→21:29)
[2023-01-21] MEDS: DIVALPROEX SODIUM 250 MG TABLET E.C. PO SCH ×2 (10:13→21:28)
[2023-01-21] MEDS: LISINOPRIL 10 MG TABLET PO SCH (10:13)
[2023-01-21] MEDS: QUEtiapine FUMARATE 100 MG TABLET (FP) PO SCH ×2 (10:13→21:27)
[2023-01-21] MEDS: TAMSULOSIN HCL 0.4 MG CAP PO SCH (10:13)
[2023-01-21] MEDS: DUTASTERIDE 0.5 MG CAP (FP) PO SCH (10:13)
[2023-01-21] MEDS: DIVALPROEX SODIUM 500 MG TABLET E.C. PO SCH ×2 (10:14→21:29)
[2023-01-21] MEDS: FAMOTIDINE 20 MG TABLET PO SCH ×2 (10:14→21:28)
[2023-01-21] MEDS: amLODIPine BESYLATE 10 MG TABLET (FP) PO SCH (10:14)
[2023-01-21] MEDS: LORazepam 1 MG TABLET PO SCH ×2 (10:15→21:29)
[2023-01-21] MEDS ORDERED: SODIUM CHLORIDE NASAL SPRAY 44 ML BOTTLE NS PRN (13:00)
[2023-01-21] MEDS ORDERED: BISACODYL 5 MG TABLET.DR (FP) PO ONE (16:26)
[2023-01-21] MEDS ORDERED: MAGNESIUM HYDROX 2400MG/30ML ORAL SUSPENSION 30 ML CUP PO PRN (16:26)
[2023-01-21] MEDS ORDERED: MAGNESIUM HYDROX 2400MG/30ML ORAL SUSPENSION 30 ML CUP PO ONE (16:26)
[2023-01-21] MEDS ORDERED: POLYETHYLENE GLYCOL (HEALTHYLAX) 3350 17 GM PACKET PO ONE (16:30)
[2023-01-21] MEDS: ATORVASTATIN CA 10 MG TABLET (FP) PO SCH (21:27)
[2023-01-22] MEDS: INSULIN SLIDING SCALE (NOVOLOG) 1 VIAL SQ SCH ×4 (05:59→21:37)
[2023-01-22] MEDS ORDERED: SODIUM CHLORIDE FOR INHALATION 3 ML VIAL.NEB IH PRN (08:31)
[2023-01-22] MEDS: LISINOPRIL 10 MG TABLET PO SCH (09:30)
[2023-01-22] MEDS: LORazepam 1 MG TABLET PO SCH ×2 (09:30→21:32)
[2023-01-22] MEDS: DIVALPROEX SODIUM 500 MG TABLET E.C. PO SCH ×2 (09:30→21:34)
[2023-01-22] MEDS: QUEtiapine FUMARATE 100 MG TABLET (FP) PO SCH ×2 (09:30→21:32)
[2023-01-22] MEDS: TAMSULOSIN HCL 0.4 MG CAP PO SCH (09:30)
[2023-01-22] MEDS: FAMOTIDINE 20 MG TABLET PO SCH ×2 (09:30→21:37)
[2023-01-22] MEDS: DIVALPROEX SODIUM 250 MG TABLET E.C. PO SCH ×2 (09:31→21:41)
[2023-01-22] MEDS: APIXABAN 5 MG TABLET PO SCH ×2 (09:31→21:31)
[2023-01-22] MEDS: DUTASTERIDE 0.5 MG CAP (FP) PO SCH (09:31)
[2023-01-22] MEDS: POLYETHYLENE GLYCOL (HEALTHYLAX) 3350 17 GM PACKET PO SCH (09:31)
[2023-01-22] MEDS: CEFTRIAXONE 1 GM in DEXTROSE 5%-WATER - 50 ML IVPB SCH (09:32)
[2023-01-22] MEDS: amLODIPine BESYLATE 10 MG TABLET (FP) PO SCH (09:32)
[2023-01-22] MEDS: DOXYCYCLINE INJECTION 100 MG in DEXTROSE 5%-WATER 100 ML IVPB SCH (10:20)
[2023-01-22] MEDS: ALBUTEROL SO4 2.5/IPRATROPIUM 0.5 INH SOL 3 ML VIAL.NEB. NEB PRN (18:35)
[2023-01-22] MEDS ORDERED: INSULIN (NOVOLOG) ASPART 100 UNITS/ML 10ML VIAL ONE (21:17)
[2023-01-22] MEDS: DOXYCYCLINE HYCLATE 100 MG CAPSULE PO SCH (21:36)
[2023-01-22] MEDS: ATORVASTATIN CA 10 MG TABLET (FP) PO SCH (21:36)
[2023-01-23] MEDS: INSULIN SLIDING SCALE (NOVOLOG) 1 VIAL SQ SCH ×4 (06:37→22:05)
[2023-01-23 08:31] LABS: BASO % 0.2 % (0-2.0); EOS % 1.2 % (0-4.5); HEMATOCRIT 34.2 % (35.4-49); HEMOGLOBIN 11.9 GM/dL (11.7-16.9); LYMPH % 30.7 % (8-40); MCHC 34.8 g/dl (32.0-35.9); MEAN CELL VOLUME 86.1 fl (80-96); MEAN PLT VOLUME 6.9 fl (7.5-11.1); MONO % 8.7 % (3.8-10.2); NEUT % 59.2 % (42.8-82.8); PLATELET COUNT 175 10^3/uL (134-434); RBC 3.97 M/mm3 (4.00-5.60); RDW 14.5 % (11.9-15.9); WHITE BLOOD COUNT 4.2 K/mm3 (4.0-10.0)
[2023-01-23 08:40] LABS: INR 1.38 (0.83-1.09); PROTHROMBIN TIME (PATIENT) 15.9 SEC (9.7-13.0)
[2023-01-23] MEDS: TAMSULOSIN HCL 0.4 MG CAP PO SCH (08:57)
[2023-01-23 09:14] LABS: POTASSIUM 4.2 mmol/L (3.5-5.1)
[2023-01-23 09:25] LABS: ALBUMIN 2.7 g/dl (3.4-5.0); BLOOD UREA NITROGEN 18.3 mg/dL (7-18)
[2023-01-23 09:26] LABS: BILIRUBIN,TOTAL 0.4 mg/dL (0.2-1); CALCIUM 9.2 mg/dL (8.5-10.1)
[2023-01-23 09:27] LABS: MAGNESIUM 2.2 mg/dL (1.8-2.4); TOT PROT 6.1 g/dl (6.4-8.2)
[2023-01-23 09:28] LABS: CREATININE 0.7 mg/dL (0.55-1.3)
[2023-01-23 09:57] LABS: ANISOCYTOSIS 0; MACROCYTOSIS 0
[2023-01-23] MEDS: DOXYCYCLINE HYCLATE 100 MG CAPSULE PO SCH ×2 (09:57→22:05)
[2023-01-23] MEDS: DIVALPROEX SODIUM 500 MG TABLET E.C. PO SCH ×2 (09:57→22:05)
[2023-01-23] MEDS: DUTASTERIDE 0.5 MG CAP (FP) PO SCH (09:57)
[2023-01-23] MEDS: LISINOPRIL 10 MG TABLET PO SCH (09:58)
[2023-01-23] MEDS: LORazepam 1 MG TABLET PO SCH ×2 (09:58→22:05)
[2023-01-23] MEDS: APIXABAN 5 MG TABLET PO SCH ×2 (09:58→22:04)
[2023-01-23] MEDS: QUEtiapine FUMARATE 100 MG TABLET (FP) PO SCH ×2 (09:58→22:04)
[2023-01-23] MEDS: amLODIPine BESYLATE 10 MG TABLET (FP) PO SCH (09:58)
[2023-01-23] MEDS: FAMOTIDINE 20 MG TABLET PO SCH ×2 (09:59→22:05)
[2023-01-23] MEDS: CEFTRIAXONE 1 GM in DEXTROSE 5%-WATER - 50 ML IVPB SCH (09:59)
[2023-01-23] MEDS: DIVALPROEX SODIUM 250 MG TABLET E.C. PO SCH ×2 (09:59→22:05)
[2023-01-23] MEDS: POLYETHYLENE GLYCOL (HEALTHYLAX) 3350 17 GM PACKET PO SCH (09:59)
[2023-01-23] MEDS ORDERED: INSULIN (NOVOLOG) ASPART 100 UNITS/ML 10ML VIAL ONE (11:33)
[2023-01-23] MEDS: ATORVASTATIN CA 10 MG TABLET (FP) PO SCH (22:04)
[2023-01-24] MEDS: INSULIN SLIDING SCALE (NOVOLOG) 1 VIAL SQ SCH ×3 (06:38→17:36)
[2023-01-24] MEDS: ALBUTEROL SO4 2.5/IPRATROPIUM 0.5 INH SOL 3 ML VIAL.NEB. NEB PRN (06:41)
[2023-01-24] MEDS: QUEtiapine FUMARATE 100 MG TABLET (FP) PO SCH ×2 (09:02→21:07)
[2023-01-24] MEDS: LORazepam 1 MG TABLET PO SCH ×2 (09:02→21:09)
[2023-01-24] MEDS: POLYETHYLENE GLYCOL (HEALTHYLAX) 3350 17 GM PACKET PO SCH (09:02)
[2023-01-24] MEDS: DIVALPROEX SODIUM 500 MG TABLET E.C. PO SCH ×2 (09:02→21:07)
[2023-01-24] MEDS: DUTASTERIDE 0.5 MG CAP (FP) PO SCH (09:02)
[2023-01-24] MEDS: CEFTRIAXONE 1 GM in DEXTROSE 5%-WATER - 50 ML IVPB SCH (09:02)
[2023-01-24] MEDS: TAMSULOSIN HCL 0.4 MG CAP PO SCH (09:02)
[2023-01-24] MEDS: FAMOTIDINE 20 MG TABLET PO SCH ×2 (09:02→21:07)
[2023-01-24] MEDS: LISINOPRIL 10 MG TABLET PO SCH (09:02)
[2023-01-24] MEDS: APIXABAN 5 MG TABLET PO SCH ×2 (09:03→21:07)
[2023-01-24] MEDS: amLODIPine BESYLATE 10 MG TABLET (FP) PO SCH (09:03)
[2023-01-24] MEDS: DIVALPROEX SODIUM 250 MG TABLET E.C. PO SCH ×2 (09:03→21:07)
[2023-01-24] MEDS: BISACODYL 5 MG TABLET.DR (FP) PO PRN (09:03)
[2023-01-24] MEDS: amLODIPine BESYLATE 5 MG TABLET (FP) PO SCH (09:04)
[2023-01-24 09:17] LABS: BASO % 0.2 % (0-2.0); EOS % 1.1 % (0-4.5); HEMATOCRIT 35.7 % (35.4-49); HEMOGLOBIN 12.2 GM/dL (11.7-16.9); LYMPH % 28.6 % (8-40); MCH 29.3 pg (25.7-33.7); MCHC 34.2 g/dl (32.0-35.9); MEAN CELL VOLUME 85.6 fl (80-96); MEAN PLT VOLUME 6.6 fl (7.5-11.1); MONO % 9.6 % (3.8-10.2); NEUT % 60.5 % (42.8-82.8); PLATELET COUNT 193 10^3/uL (134-434); RBC 4.17 M/mm3 (4.00-5.60); RDW 14.2 % (11.9-15.9); WHITE BLOOD COUNT 4.7 K/mm3 (4.0-10.0)
[2023-01-24 09:55] LABS: POTASSIUM 4.4 mmol/L (3.5-5.1)
[2023-01-24 09:57] LABS: CALCIUM 8.9 mg/dL (8.5-10.1)
[2023-01-24 09:58] LABS: ALBUMIN 2.7 g/dl (3.4-5.0); BLOOD UREA NITROGEN 16.9 mg/dL (7-18)
[2023-01-24 10:01] LABS: CREATININE 0.7 mg/dL (0.55-1.3)
[2023-01-24 10:03] LABS: BILIRUBIN,TOTAL 0.3 mg/dL (0.2-1); TOT PROT 6.2 g/dl (6.4-8.2)
[2023-01-24 10:33] LABS: ANISOCYTOSIS 0; MACROCYTOSIS 0
[2023-01-24] MEDS: ATORVASTATIN CA 10 MG TABLET (FP) PO SCH (21:07)
[2023-01-25 08:41] LABS: HEMATOCRIT 37.3 % (35.4-49); HEMOGLOBIN 12.6 GM/dL (11.7-16.9); MCH 29.2 pg (25.7-33.7); MCHC 33.9 g/dl (32.0-35.9); MEAN CELL VOLUME 86.2 fl (80-96); MEAN PLT VOLUME 6.6 fl (7.5-11.1); PLATELET COUNT 177 10^3/uL (134-434); RBC 4.33 M/mm3 (4.00-5.60); RDW 14.4 % (11.9-15.9); WHITE BLOOD COUNT 5.1 K/mm3 (4.0-10.0)
[2023-01-25 08:44] LABS: POTASSIUM 4.3 mmol/L (3.5-5.1)
[2023-01-25 08:50] LABS: CALCIUM 8.9 mg/dL (8.5-10.1)
[2023-01-25 08:51] LABS: ALBUMIN 2.7 g/dl (3.4-5.0); BLOOD UREA NITROGEN 21.1 mg/dL (7-18)
[2023-01-25 08:54] LABS: CREATININE 0.6 mg/dL (0.55-1.3)
[2023-01-25 08:55] LABS: BILIRUBIN,TOTAL 0.4 mg/dL (0.2-1); TOT PROT 6.2 g/dl (6.4-8.2)
[2023-01-25] MEDS: POLYETHYLENE GLYCOL (HEALTHYLAX) 3350 17 GM PACKET PO SCH (09:38)
[2023-01-25] MEDS: CEFTRIAXONE 1 GM in DEXTROSE 5%-WATER - 50 ML IVPB SCH (09:39)
[2023-01-25] MEDS: TAMSULOSIN HCL 0.4 MG CAP PO SCH (09:39)
[2023-01-25] MEDS: QUEtiapine FUMARATE 100 MG TABLET (FP) PO SCH ×2 (09:39→21:51)
[2023-01-25] MEDS: DIVALPROEX SODIUM 500 MG TABLET E.C. PO SCH ×2 (09:39→21:51)
[2023-01-25] MEDS: LORazepam 1 MG TABLET PO SCH ×2 (09:39→21:51)
[2023-01-25] MEDS: APIXABAN 5 MG TABLET PO SCH ×2 (09:40→21:51)
[2023-01-25] MEDS: LISINOPRIL 10 MG TABLET PO SCH (09:40)
[2023-01-25] MEDS: FAMOTIDINE 20 MG TABLET PO SCH ×2 (09:40→21:51)
[2023-01-25] MEDS: amLODIPine BESYLATE 5 MG TABLET (FP) PO SCH (09:40)
[2023-01-25] MEDS: DIVALPROEX SODIUM 250 MG TABLET E.C. PO SCH ×2 (09:40→21:51)
[2023-01-25] MEDS: BISACODYL 5 MG TABLET.DR (FP) PO PRN (09:40)
[2023-01-25] MEDS: DUTASTERIDE 0.5 MG CAP (FP) PO SCH (09:40)
[2023-01-25 10:06] LABS: ANISOCYTOSIS 0; HELMET CELLS 0; HOWELL-JOLLY BODIES 0; MACROCYTOSIS 0; OVALOCYTE 0; ROULEAU 0; SICKELED CELLS 0; TARGET CELLS 0; TEAR DROP CELLS 0; TOXIC GRANULATION 0
[2023-01-25] MEDS: ATORVASTATIN CA 10 MG TABLET (FP) PO SCH (21:51)
[2023-01-26] MEDS: TAMSULOSIN HCL 0.4 MG CAP PO SCH (10:03)
[2023-01-26] MEDS: DUTASTERIDE 0.5 MG CAP (FP) PO SCH (10:03)
[2023-01-26] MEDS: LORazepam 1 MG TABLET PO SCH ×2 (10:03→22:37)
[2023-01-26] MEDS: QUEtiapine FUMARATE 100 MG TABLET (FP) PO SCH ×2 (10:03→22:35)
[2023-01-26] MEDS: LISINOPRIL 10 MG TABLET PO SCH (10:03)
[2023-01-26] MEDS: DIVALPROEX SODIUM 500 MG TABLET E.C. PO SCH ×2 (10:03→22:36)
[2023-01-26] MEDS: DIVALPROEX SODIUM 250 MG TABLET E.C. PO SCH ×2 (10:04→22:37)
[2023-01-26] MEDS: POLYETHYLENE GLYCOL (HEALTHYLAX) 3350 17 GM PACKET PO SCH (10:04)
[2023-01-26] MEDS: amLODIPine BESYLATE 5 MG TABLET (FP) PO SCH (10:04)
[2023-01-26] MEDS: APIXABAN 5 MG TABLET PO SCH ×2 (10:04→22:36)
[2023-01-26] MEDS: FAMOTIDINE 20 MG TABLET PO SCH ×2 (10:04→22:37)
[2023-01-26] MEDS: CEFTRIAXONE 1 GM in DEXTROSE 5%-WATER - 50 ML IVPB SCH (10:05)
[2023-01-26] MEDS: ATORVASTATIN CA 10 MG TABLET (FP) PO SCH (22:34)
[2023-01-27] MEDS: LISINOPRIL 10 MG TABLET PO SCH (09:47)
[2023-01-27] MEDS: FAMOTIDINE 20 MG TABLET PO SCH ×2 (09:48→22:25)
[2023-01-27] MEDS: TAMSULOSIN HCL 0.4 MG CAP PO SCH (09:48)
[2023-01-27] MEDS: DIVALPROEX SODIUM 500 MG TABLET E.C. PO SCH ×2 (09:48→22:24)
[2023-01-27] MEDS: POLYETHYLENE GLYCOL (HEALTHYLAX) 3350 17 GM PACKET PO SCH (09:48)
[2023-01-27] MEDS: DUTASTERIDE 0.5 MG CAP (FP) PO SCH (09:48)
[2023-01-27] MEDS: DIVALPROEX SODIUM 250 MG TABLET E.C. PO SCH ×2 (09:48→22:24)
[2023-01-27] MEDS: APIXABAN 5 MG TABLET PO SCH ×2 (09:48→22:24)
[2023-01-27] MEDS: amLODIPine BESYLATE 5 MG TABLET (FP) PO SCH (09:48)
[2023-01-27] MEDS: QUEtiapine FUMARATE 100 MG TABLET (FP) PO SCH ×2 (09:48→22:25)
[2023-01-27] MEDS: LORazepam 1 MG TABLET PO SCH ×2 (09:48→22:25)
[2023-01-27] MEDS ORDERED: BISACODYL 10 MG SUPP.RECT PR ONE (11:30)
[2023-01-27] MEDS: ATORVASTATIN CA 10 MG TABLET (FP) PO SCH (22:25)
[2023-01-28 10:04] LABS: BASO % 0.2 % (0-2.0); HEMATOCRIT 40.9 % (35.4-49); HEMOGLOBIN 13.3 GM/dL (11.7-16.9); LYMPH % 18.4 % (8-40); MCH 28.5 pg (25.7-33.7); MCHC 32.4 g/dl (32.0-35.9); MEAN CELL VOLUME 87.9 fl (80-96); MEAN PLT VOLUME 7.1 fl (7.5-11.1); MONO % 4.8 % (3.8-10.2); NEUT % 75.6 % (42.8-82.8); PLATELET COUNT 151 10^3/uL (134-434); RBC 4.66 M/mm3 (4.00-5.60); RDW 14.2 % (11.9-15.9); WHITE BLOOD COUNT 5.9 K/mm3 (4.0-10.0)
[2023-01-28 10:41] LABS: POTASSIUM 4.5 mmol/L (3.5-5.1)
[2023-01-28 10:43] LABS: ALBUMIN 2.8 g/dl (3.4-5.0); BLOOD UREA NITROGEN 15.7 mg/dL (7-18); CALCIUM 9.3 mg/dL (8.5-10.1); MAGNESIUM 2.1 mg/dL (1.8-2.4)
[2023-01-28 10:46] LABS: CREATININE 0.5 mg/dL (0.55-1.3)
[2023-01-28] MEDS: FAMOTIDINE 20 MG TABLET PO SCH ×2 (10:47→21:37)
[2023-01-28] MEDS: DUTASTERIDE 0.5 MG CAP (FP) PO SCH (10:47)
[2023-01-28] MEDS: QUEtiapine FUMARATE 100 MG TABLET (FP) PO SCH ×2 (10:47→21:37)
[2023-01-28] MEDS: TAMSULOSIN HCL 0.4 MG CAP PO SCH (10:47)
[2023-01-28] MEDS: APIXABAN 5 MG TABLET PO SCH ×2 (10:47→21:37)
[2023-01-28] MEDS: LORazepam 1 MG TABLET PO SCH ×2 (10:47→21:41)
[2023-01-28] MEDS: LISINOPRIL 10 MG TABLET PO SCH (10:47)
[2023-01-28] MEDS: DIVALPROEX SODIUM 500 MG TABLET E.C. PO SCH ×2 (10:47→21:37)
[2023-01-28 10:48] LABS: BILIRUBIN,TOTAL 0.4 mg/dL (0.2-1); TOT PROT 6.5 g/dl (6.4-8.2)
[2023-01-28] MEDS: amLODIPine BESYLATE 5 MG TABLET (FP) PO SCH (10:48)
[2023-01-28] MEDS: POLYETHYLENE GLYCOL (HEALTHYLAX) 3350 17 GM PACKET PO SCH (10:48)
[2023-01-28] MEDS: DIVALPROEX SODIUM 250 MG TABLET E.C. PO SCH ×2 (10:54→21:37)
[2023-01-28] MEDS: ATORVASTATIN CA 10 MG TABLET (FP) PO SCH (21:37)
[2023-01-29] MEDS: POLYETHYLENE GLYCOL (HEALTHYLAX) 3350 17 GM PACKET PO SCH (09:24)
[2023-01-29] MEDS: FAMOTIDINE 20 MG TABLET PO SCH (09:24)
[2023-01-29] MEDS: DUTASTERIDE 0.5 MG CAP (FP) PO SCH (09:24)
[2023-01-29] MEDS: APIXABAN 5 MG TABLET PO SCH (09:24)
[2023-01-29] MEDS: TAMSULOSIN HCL 0.4 MG CAP PO SCH (09:24)
[2023-01-29] MEDS: DIVALPROEX SODIUM 500 MG TABLET E.C. PO SCH (09:24)
[2023-01-29] MEDS: LORazepam 1 MG TABLET PO SCH (09:25)
[2023-01-29] MEDS: QUEtiapine FUMARATE 100 MG TABLET (FP) PO SCH (09:25)
[2023-01-29] MEDS: DIVALPROEX SODIUM 250 MG TABLET E.C. PO SCH (09:26)
[2023-01-29] MEDS: LISINOPRIL 10 MG TABLET PO SCH (09:29)
[2023-01-29] MEDS: amLODIPine BESYLATE 5 MG TABLET (FP) PO SCH (09:29)
[2023-01-29 09:36] LABS: BASO % 0.2 % (0-2.0); EOS % 1.5 % (0-4.5); HEMATOCRIT 35.9 % (35.4-49); LYMPH % 24.4 % (8-40); MCHC 33.5 g/dl (32.0-35.9); MEAN CELL VOLUME 86.5 fl (80-96); MONO % 6.7 % (3.8-10.2); NEUT % 67.2 % (42.8-82.8); PLATELET COUNT 156 10^3/uL (134-434); RBC 4.15 M/mm3 (4.00-5.60); RDW 14.7 % (11.9-15.9); WHITE BLOOD COUNT 6.4 K/mm3 (4.0-10.0)
[2023-01-29 09:58] LABS: POTASSIUM 4.3 mmol/L (3.5-5.1)
[2023-01-29 10:04] LABS: ALBUMIN 2.9 g/dl (3.4-5.0); BLOOD UREA NITROGEN 19.8 mg/dL (7-18); MAGNESIUM 2.1 mg/dL (1.8-2.4)
[2023-01-29 10:06] LABS: CREATININE 0.7 mg/dL (0.55-1.3)
[2023-01-29 10:08] LABS: BILIRUBIN,TOTAL 0.6 mg/dL (0.2-1); CALCIUM 8.9 mg/dL (8.5-10.1); TOT PROT 6.1 g/dl (6.4-8.2)
[2023-01-29 19:33] VITALS: BP 137/77; PULSE 68; RESP 18; TEMP 98.9
== END 2023-01-29 20:14 | DRG 175 ==
LOC: JER 10:23 → JERBED 14:11 → J8W 16:27
PROVIDERS: ADMIT Internal Medicine; ATTEND Nurse Practitioner Family
DX: I26.99 Other pulmonary embolism without acute cor pulmonale (principal); J18.9 Pneumonia, unspecified organism; J96.01 Acute respiratory failure with hypoxia; E11.9 Type 2 diabetes mellitus without complications; N40.0 Benign prostatic hyperplasia without lower urinary tract symptoms; F79 Unspecified intellectual disabilities; E78.5 Hyperlipidemia, unspecified; F41.9 Anxiety disorder, unspecified; I10 Essential (primary) hypertension; K21.9 Gastro-esophageal reflux disease without esophagitis; R26.81 Unsteadiness on feet; F39 Unspecified mood [affective] disorder; R94.31 Abnormal electrocardiogram [ECG] [EKG]; E66.9 Obesity, unspecified; Z68.32 Body mass index [BMI] 32.0-32.9, adult; F81.9 Developmental disorder of scholastic skills, unspecified; R56.9 Unspecified convulsions
CPT/HCPCS: 0241U-QW; 36415; 71045-TC-FY; 71275-TC; 80053; 81003; 82550; 82803; 82962; 83036; 83605; 83735; 84100; 84484; 85025; 85027; 85610; 85730; 86850; 86900; 86901; 87040; 87086; 87635; 93005; 93010; 93306-TC; 94010; 94640; 94761; 97161-GP; 99285-25; Q9967

== ENCOUNTER 2023-06-01 15:20 | Emergency (ER) | payer OTHER ==
[2023-06-01 15:27] VITALS: TEMP 98.8; BMI 25.0
[2023-06-01 18:47] LABS: BASO % 0.2 % (0-2.0); EOS % 0.7 % (0-4.5); HEMATOCRIT 42.8 % (35.4-49); LYMPH % 13.7 % (8-40); MCH 29.8 pg (25.7-33.7); MEAN CELL VOLUME 85.1 fl (80-96); MEAN PLT VOLUME 7.9 fl (7.5-11.1); MONO % 6.9 % (3.8-10.2); NEUT % 78.5 % (42.8-82.8); PLATELET COUNT 206 10^3/uL (134-434); RBC 5.03 M/mm3 (4.00-5.60); RDW 14.2 % (11.9-15.9); WHITE BLOOD COUNT 10.3 K/mm3 (4.0-10.0)
[2023-06-01 19:23] LABS: CHLORIDE 101 mmol/L (98-107); POTASSIUM 5.1 mmol/L (3.5-5.1); SODIUM 136 mmol/L (136-145)
[2023-06-01 19:25] LABS: ALBUMIN 3.3 g/dl (3.4-5.0); ANION GAP 9 MMOL/L (8-16); CO2 27 mmol/L (21-32); GLUCOSE,RANDOM 99 mg/dL (74-106)
[2023-06-01 19:28] LABS: CREATININE 0.5 mg/dL (0.55-1.3); SGOT/AST 17 U/L (15-37); SGPT/ALT < 6 U/L (13-61)
[2023-06-01 19:30] LABS: BILIRUBIN,TOTAL 0.5 mg/dL (0.2-1); TOT PROT 7.1 g/dl (6.4-8.2)
[2023-06-01 19:31] LABS: ALK PHOS 76 U/L (45-117)
[2023-06-01 20:13] LABS: EPI CELLS 7 /uL (0-25.1); HYALINE CASTS 1 /uL (0-3.1); PH,URINE 7.5 (5.0-8.0); URINE APPEARANCE CLOUDY; URINE BACTERIA 341 /uL (0-1359); URINE BILIRUBIN NEGATIVE (NEGATIVE); URINE COLOR YELLOW; URINE GLUCOSE (UA) NEGATIVE (NEGATIVE); URINE KETONE NEGATIVE (NEGATIVE); URINE LEUK ESTERASE 3+ (NEGATIVE); URINE NITRITE NEGATIVE (NEGATIVE); URINE PROTEIN 1+ (NEGATIVE); URINE RBC 1778 /uL (0-23.9); URINE WBC 1869 /uL (0-25.8)
[2023-06-01] MEDS ORDERED: CEFTRIAXONE 1,000 MG in DEXTROSE 5%-WATER - 50 ML IVPB ONE (20:40)
[2023-06-01] MEDS ORDERED: CEFTRIAXONE 1 GM/50 ML BAG ONE (21:11)
[2023-06-01 21:49] VITALS: BP 138/65; PULSE 89; RESP 17
== END 2023-06-01 21:46 ==
LOC: JER 15:20
PROC: 0T9B70Z Drainage of Bladder with Drainage Device, Via Natural or Artificial Opening (ICD-10-PCS; principal; 2023-06-01)
PROC: 3E03329 Introduction of Other Anti-infective into Peripheral Vein, Percutaneous Approach (ICD-10-PCS; 2023-06-01)
DX: R31.9 Hematuria, unspecified (principal); N39.0 Urinary tract infection, site not specified; R23.2 Flushing; J00 Acute nasopharyngitis [common cold]; T83.511A Infection and inflammatory reaction due to indwelling urethral catheter, initial encounter; Y83.1 Surgical operation with implant of artificial internal device as the cause of abnormal reaction of the patient, or of later complication, without mention of misadventure at the time of the procedure
CPT/HCPCS: 36415; 80053; 81003; 85025; 87086; 87186; 99284-25

== ENCOUNTER 2023-07-07 11:27 | Emergency (ER) | payer OTHER ==
[2023-07-07 13:19] VITALS: BP 147/69; PULSE 60; RESP 16; TEMP 97.5; BMI 29.9
[2023-07-07] MEDS ORDERED: oxyCODONE HCL 5 MG TABLET PO ONE (13:35)
[2023-07-07 14:04] LABS: EPI CELLS 0 /uL (0-25.1); HYALINE CASTS 0 /uL (0-3.1); URINE APPEARANCE CLEAR; URINE BACTERIA >9,000 /uL (0-1359); URINE BILIRUBIN NEGATIVE (NEGATIVE); URINE COLOR YELLOW; URINE GLUCOSE (UA) NEGATIVE (NEGATIVE); URINE KETONE NEGATIVE (NEGATIVE); URINE LEUK ESTERASE 3+ (NEGATIVE); URINE NITRITE POSITIVE (NEGATIVE); URINE PROTEIN NEGATIVE (NEGATIVE); URINE RBC 19 /uL (0-23.9); URINE WBC 497 /uL (0-25.8)
[2023-07-07] MEDS ORDERED: oxyCODONE HCL 5 MG TABLET ONE (15:26)
[2023-07-07] MEDS ORDERED: DEXAMETHASONE SOD PHOSPHATE 10 MG/1 ML VIAL IVPUSH ONE (21:18)
[2023-07-07] MEDS ORDERED: DEXAMETHASONE SOD PHOSPHATE 10 MG/1 ML VIAL ONE (21:30)
[2023-07-07 21:58] LABS: INR 1.18 (0.83-1.09); PROTHROMBIN TIME (PATIENT) 13.7 SEC (9.7-13.0)
[2023-07-07 22:01] LABS: ACTIVATED PTT 34.8 SECONDS (25.2-36.5)
[2023-07-07 22:10] LABS: BASO % 0.3 % (0-2.0); HEMATOCRIT 33.9 % (35.4-49); LYMPH % 25.7 % (8-40); MCH 27.9 pg (25.7-33.7); MCHC 32.4 g/dl (32.0-35.9); MEAN CELL VOLUME 86.1 fl (80-96); MEAN PLT VOLUME 6.4 fl (7.5-11.1); MONO % 8.6 % (3.8-10.2); NEUT % 64.4 % (42.8-82.8); PLATELET COUNT 111 10^3/uL (134-434); RBC 3.94 M/mm3 (4.00-5.60); RDW 14.2 % (11.9-15.9); WHITE BLOOD COUNT 4.1 K/mm3 (4.0-10.0)
[2023-07-07 22:16] LABS: POTASSIUM 4.4 mmol/L (3.5-5.1)
[2023-07-07 22:18] LABS: CALCIUM 8.8 mg/dL (8.5-10.1)
[2023-07-07 22:19] LABS: ALBUMIN 3.1 g/dl (3.4-5.0); BLOOD UREA NITROGEN 10.2 mg/dL (7-18)
[2023-07-07 22:22] LABS: CREATININE 0.8 mg/dL (0.55-1.3)
[2023-07-07 22:23] LABS: BILIRUBIN,TOTAL 0.4 mg/dL (0.2-1)
[2023-07-07 22:24] LABS: TOT PROT 6.8 g/dl (6.4-8.2)
== END 2023-07-07 21:53 | disposition short-term general hospital (02) ==
LOC: JER 11:27
PROC: 3E033GC Introduction of Other Therapeutic Substance into Peripheral Vein, Percutaneous Approach (ICD-10-PCS; principal; 2023-07-07)
DX: M54.50 Low back pain, unspecified (principal); M54.2 Cervicalgia; M54.6 Pain in thoracic spine
CPT/HCPCS: 36415; 72125-TC; 72128-TC; 72131-TC; 80053; 81003; 85025; 85610; 85730; 87086; 87186; 93005; 93010; 99285-25; J1100

== ENCOUNTER 2024-11-26 15:03 | Inpatient (IN) | payer OTHER ==
[2024-11-26 15:42] LABS: ABSOLUTE IMMATURE GRANULOCYTES 0.07 x10^3/uL (0.0-0.031); BASOPHILS # 0.04 x10^3/uL (0.01-0.08); EOSINOPHIL % 0.5 % (0.8-7.0); EOSINOPHILS # 0.08 x10^3/uL (0.04-0.54); HEMATOCRIT 47.5 % (40.1-51.0); HEMOGLOBIN 14.9 g/dL (13.7-17.5); MCHC 31.4 g/dl (32.3-36.5); MEAN CELL VOLUME 88.1 fl (79.0-92.2); MEAN PLT VOLUME 9.2 fl (9.4-12.4); MONOCYTE # 0.43 x10^3/uL (0.30-0.82); MONOCYTE % 2.9 % (5.3-12.2); PLATELET COUNT 217 x10^3/uL (163-337); RDW 13.4 % (12.2-16.4); VENOUS BASE EXCESS -0.3 mmol/L (-2-2); VENOUS O2 SATURATION 21.9 % (70-80); VENOUS PCO2 51.2 mmHg (38-52); VENOUS PH 7.331 (7.310-7.410)
[2024-11-26] MEDS ORDERED: ACETAMINOPHEN INJECTION 100 ML ONE (15:44)
[2024-11-26] MEDS: ACETAMINOPHEN 1000 MG/100 ML BAG IVPB ONE (15:45)
[2024-11-26] MEDS ORDERED: ONDANSETRON 4 MG/2 ML VIAL ONE (15:45)
[2024-11-26] MEDS: ONDANSETRON 4 MG/2 ML VIAL IVPUSH ONE (15:45)
[2024-11-26] MEDS ORDERED: FAMOTIDINE 20 MG/50 ML IVPB 20 MG/50 ML MG IVPB ONE (15:45)
[2024-11-26] MEDS: FAMOTIDINE 20 MG/50 ML IVPB 20 MG/50 ML MG IVPB ONE (15:45)
[2024-11-26 16:00] LABS: POTASSIUM 3.6 mmol/L (3.5-5.1)
[2024-11-26 16:02] LABS: CALCIUM 9.7 mg/dL (8.5-10.1)
[2024-11-26 16:03] LABS: ALBUMIN 3.6 g/dl (3.4-5.0); BLOOD UREA NITROGEN 17.2 mg/dL (7-18)
[2024-11-26 16:06] LABS: CREATININE 1.3 mg/dL (0.55-1.3)
[2024-11-26] MEDS: SODIUM CHLORIDE 0.9% 1000 ML INFUS.BAG IV STA (16:06)
[2024-11-26 16:08] LABS: BILIRUBIN,TOTAL 0.6 mg/dL (0.2-1); TOT PROT 7.5 g/dl (6.4-8.2)
[2024-11-26 16:16] LABS: LACTIC ACID 2.4 mmol/L (0.4-2.0)
[2024-11-26] MEDS: SODIUM CHLORIDE 1,000 ML IV STA (16:46)
[2024-11-26 17:29] LABS: EPI CELLS 5 /uL (0-25.1); HYALINE CASTS 2 /uL (0-3.1); URINE APPEARANCE CLOUDY; URINE BACTERIA 104 /uL (0-1359); URINE BILIRUBIN NEGATIVE (NEGATIVE); URINE COLOR YELLOW; URINE GLUCOSE (UA) NEGATIVE (NEGATIVE); URINE KETONE TRACE (NEGATIVE); URINE LEUK ESTERASE 3+ (NEGATIVE); URINE NITRITE NEGATIVE (NEGATIVE); URINE PROTEIN 2+ (NEGATIVE); URINE RBC 91 /uL (0-23.9); URINE WBC 3800 /uL (0-25.8)
[2024-11-26 19:59] LABS: HEMATOCRIT 41.7 % (40.1-51.0); HEMOGLOBIN 13.1 g/dL (13.7-17.5); MCHC 31.4 g/dl (32.3-36.5); MEAN CELL VOLUME 87.8 fl (79.0-92.2); MEAN PLT VOLUME 8.6 fl (9.4-12.4); PLATELET COUNT 136 x10^3/uL (163-337); RDW 13.3 % (12.2-16.4)
[2024-11-26 20:02] LABS: VENOUS BASE EXCESS -1.5 mmol/L (-2-2); VENOUS PCO2 53.1 mmHg (38-52); VENOUS PH 7.301 (7.310-7.410)
[2024-11-26] MEDS ORDERED: LORazepam 1 MG TABLET PO PRN (21:49)
[2024-11-26] MEDS ORDERED: CEFTRIAXONE 1 G/50 ML PREMIX 50 ML IVPB ONE (21:57)
[2024-11-26] MEDS: CEFTRIAXONE 1,000 MG in DEXTROSE 5%-WATER - 50 ML IVPB ONE (22:04)
[2024-11-26] MEDS: SODIUM CHLORIDE 1,000 ML IV SCH (22:20)
[2024-11-26] MEDS ORDERED: DIVALPROEX SODIUM 500 MG TABLET E.C. ONE (22:24)
[2024-11-26] MEDS ORDERED: ATORVASTATIN CA 10 MG TABLET (FP) ONE (22:24)
[2024-11-26] MEDS ORDERED: CARBIDOPA/LEVODOPA 25/100 TABLET (FP) ONE (22:24)
[2024-11-26] MEDS ORDERED: QUEtiapine FUMARATE 100 MG TABLET (FP) ONE (22:24)
[2024-11-26] MEDS ORDERED: APIXABAN 5 MG TABLET ONE (22:24)
[2024-11-26] MEDS ORDERED: ERTAPENEM SODIUM 1 GM VIAL ONE (22:40)
[2024-11-26] MEDS: ERTAPENEM SODIUM 1 GM in SODIUM CHLORIDE 50 ML IVPB ONE (23:10)
[2024-11-26] MEDS: APIXABAN 5 MG TABLET PO SCH ×2 (23:11→23:26)
[2024-11-26] MEDS: DIVALPROEX SODIUM 500 MG TABLET E.C. PO SCH ×2 (23:11→23:26)
[2024-11-26] MEDS: ATORVASTATIN CA 10 MG TABLET (FP) PO SCH ×2 (23:15→23:26)
[2024-11-26] MEDS ORDERED: PATIENT'S OWN MEDICATION (NON-FORMULARY) (Cariprazine Hcl [Vraylar] 1.5 MG Capsule) PO SCH (23:15)
[2024-11-26] MEDS: VANCOMYCIN 1 GM PREMIX (F) 1 GM/200 ML BAG IVPB SCH (23:25)
[2024-11-27] MEDS: DIVALPROEX SODIUM 250 MG TABLET E.C. PO ONE (00:19)
[2024-11-27] MEDS: QUEtiapine FUMARATE 200 MG TABLET PO ONE (00:36)
[2024-11-27] MEDS: QUEtiapine FUMARATE 100 MG TABLET (FP) PO SCH (00:38)
[2024-11-27 01:44] VITALS: BMI 33.7
[2024-11-27] MEDS: QUEtiapine FUMARATE 100 MG TABLET (FP) PO ONE (02:47)
[2024-11-27] MEDS ORDERED: VANCOMYCIN 1,000 MG in DEXTROSE 5%-WATER - 250 ML IVPB ONE (02:58)
[2024-11-27] MEDS: VANCOMYCIN/WATER FOR INJ (PEG) 1 GM/200 ML BAG IVPB SCH ×2 (03:16→03:28)
[2024-11-27] MEDS: CARBIDOPA/LEVODOPA 25/100 TABLET (FP) PO SCH (06:30)
[2024-11-27] MEDS: INSULIN ASPART SLIDING SCALE (NOVOLOG) 1 VIAL SQ SCH (06:30)
[2024-11-27] MEDS ORDERED: TAMSULOSIN HCL 0.4 MG CAP PO SCH (08:30)
[2024-11-27] MEDS: TAMSULOSIN HCL 0.4 MG CAP PO SCH (09:27)
[2024-11-27] MEDS: FAMOTIDINE 20 MG TABLET PO SCH (09:28)
[2024-11-27] MEDS: DIVALPROEX 500 MG, DIVALPROEX 250 MG PO SCH (09:28)
[2024-11-27] MEDS: SERTRALINE HCL 50 MG TABLET (FP) PO SCH (09:28)
[2024-11-27 09:31] LABS: HEMOGLOBIN 12.9 g/dL (13.7-17.5); MCHC 30.7 g/dl (32.3-36.5); MEAN CELL VOLUME 89.7 fl (79.0-92.2); MEAN PLT VOLUME 9.9 fl (9.4-12.4); PLATELET COUNT 135 x10^3/uL (163-337); RDW 13.8 % (12.2-16.4)
[2024-11-27 09:56] LABS: CHLORIDE 102 mmol/L (98-107); POTASSIUM 4.5 mmol/L (3.5-5.1); SODIUM 138 mmol/L (136-145)
[2024-11-27] MEDS ORDERED: PATIENT'S OWN MEDICATION (NON-FORMULARY) (Finasteride [Finasteride] 1 MG Tablet) PO SCH (10:00)
[2024-11-27 10:05] LABS: CALCIUM 8.6 mg/dL (8.5-10.1)
[2024-11-27 10:06] LABS: ANION GAP 9 mmol/L (4-13); BLOOD UREA NITROGEN 20.8 mg/dL (7-18); CO2 27 mmol/L (21-32); GLUCOSE,RANDOM 86 mg/dL (74-106)
[2024-11-27 10:08] LABS: CREATININE 0.8 mg/dL (0.55-1.3); SGOT/AST 16 U/L (15-37); SGPT/ALT < 6 U/L (13-61)
[2024-11-27 10:09] LABS: BILIRUBIN,TOTAL 0.4 mg/dL (0.2-1); TOT PROT 6.3 g/dl (6.4-8.2)
[2024-11-27 10:14] LABS: ALK PHOS 71 U/L (45-117)
[2024-11-27 11:07] LABS: GAMMA GLUTAMYL TRANSPEPTIDASE 15 U/L (5-85)
[2024-11-27] MEDS: CEFTRIAXONE 1 G/50 ML PREMIX 50 ML IVPB SCH (11:12)
[2024-11-27] MEDS: ACETAMINOPHEN 325 MG TABLET (FP) PO PRN (17:19)
[2024-11-28] MEDS: VANCOMYCIN 1,000 MG in DEXTROSE 5%-WATER - 250 ML IVPB SCH (06:08)
[2024-11-28 08:30] LABS: ABSOLUTE IMMATURE GRANULOCYTES 0.03 x10^3/uL (0.0-0.031); BASOPHILS # 0.03 x10^3/uL (0.01-0.08); EOSINOPHIL % 0.9 % (0.8-7.0); EOSINOPHILS # 0.08 x10^3/uL (0.04-0.54); HEMATOCRIT 36.5 % (40.1-51.0); HEMOGLOBIN 11.4 g/dL (13.7-17.5); MCHC 31.2 g/dl (32.3-36.5); MEAN CELL VOLUME 89.9 fl (79.0-92.2); MEAN PLT VOLUME 9.5 fl (9.4-12.4); MONOCYTE # 0.49 x10^3/uL (0.30-0.82); MONOCYTE % 5.3 % (5.3-12.2); PLATELET COUNT 117 x10^3/uL (163-337); RDW 13.7 % (12.2-16.4)
[2024-11-28 08:59] LABS: CHLORIDE 103 mmol/L (98-107); POTASSIUM 3.8 mmol/L (3.5-5.1); SODIUM 137 mmol/L (136-145)
[2024-11-28 09:06] LABS: ALBUMIN 2.6 g/dl (3.4-5.0); ANION GAP 6 mmol/L (4-13); CALCIUM 8.4 mg/dL (8.5-10.1); CO2 27 mmol/L (21-32); GLUCOSE,RANDOM 90 mg/dL (74-106); MAGNESIUM 1.9 mg/dL (1.8-2.4)
[2024-11-28 09:09] LABS: CREATININE 0.6 mg/dL (0.55-1.3); SGOT/AST 12 U/L (15-37); SGPT/ALT < 6 U/L (13-61)
[2024-11-28 09:11] LABS: BILIRUBIN,TOTAL 0.7 mg/dL (0.2-1); TOT PROT 5.5 g/dl (6.4-8.2)
[2024-11-28 09:12] LABS: ALK PHOS 61 U/L (45-117)
[2024-11-28] MEDS: CYANOCOBALAMIN 1,000 MCG TABLET (FP) PO SCH (09:30)
[2024-11-29 09:02] LABS: ABSOLUTE IMMATURE GRANULOCYTES 0.04 x10^3/uL (0.0-0.031); BASOPHILS # 0.02 x10^3/uL (0.01-0.08); EOSINOPHIL % 1.7 % (0.8-7.0); EOSINOPHILS # 0.13 x10^3/uL (0.04-0.54); HEMATOCRIT 36.9 % (40.1-51.0); HEMOGLOBIN 11.5 g/dL (13.7-17.5); MCHC 31.2 g/dl (32.3-36.5); MEAN CELL VOLUME 89.8 fl (79.0-92.2); MEAN PLT VOLUME 9.8 fl (9.4-12.4); MONOCYTE # 0.46 x10^3/uL (0.30-0.82); MONOCYTE % 6.1 % (5.3-12.2); PLATELET COUNT 129 x10^3/uL (163-337); RDW 13.5 % (12.2-16.4)
[2024-11-29 09:23] LABS: CHLORIDE 103 mmol/L (98-107); POTASSIUM 3.5 mmol/L (3.5-5.1); SODIUM 137 mmol/L (136-145)
[2024-11-29 09:29] LABS: ALBUMIN 2.6 g/dl (3.4-5.0); ANION GAP 5 mmol/L (4-13); BLOOD UREA NITROGEN 6.2 mg/dL (7-18); CALCIUM 8.4 mg/dL (8.5-10.1); CO2 29 mmol/L (21-32); GLUCOSE,RANDOM 91 mg/dL (74-106)
[2024-11-29 09:30] LABS: MAGNESIUM 1.8 mg/dL (1.8-2.4)
[2024-11-29 09:32] LABS: CREATININE 0.5 mg/dL (0.55-1.3); SGOT/AST 9 U/L (15-37); SGPT/ALT < 6 U/L (13-61)
[2024-11-29 09:33] LABS: BILIRUBIN,TOTAL 0.5 mg/dL (0.2-1); TOT PROT 5.5 g/dl (6.4-8.2)
[2024-11-29 09:35] LABS: ALK PHOS 59 U/L (45-117)
[2024-11-30] MEDS: metroNIDAZOLE 250 MG TABLET PO SCH (06:47)
[2024-11-30 07:03] VITALS: RESP 18
[2024-11-30 09:43] LABS: ABSOLUTE IMMATURE GRANULOCYTES 0.01 x10^3/uL (0.0-0.031); BASOPHILS # 0.01 x10^3/uL (0.01-0.08); EOSINOPHIL % 1.7 % (0.8-7.0); HEMATOCRIT 37.7 % (40.1-51.0); HEMOGLOBIN 11.9 g/dL (13.7-17.5); MCHC 31.6 g/dl (32.3-36.5); MEAN CELL VOLUME 88.5 fl (79.0-92.2); MEAN PLT VOLUME 9.2 fl (9.4-12.4); MONOCYTE # 0.36 x10^3/uL (0.30-0.82); MONOCYTE % 6.2 % (5.3-12.2); PLATELET COUNT 148 x10^3/uL (163-337); RDW 13.2 % (12.2-16.4)
[2024-11-30 10:08] LABS: CHLORIDE 104 mmol/L (98-107); POTASSIUM 3.5 mmol/L (3.5-5.1); SODIUM 139 mmol/L (136-145)
[2024-11-30 10:20] LABS: ALBUMIN 2.7 g/dl (3.4-5.0); ANION GAP 4 mmol/L (4-13); BLOOD UREA NITROGEN 3.6 mg/dL (7-18); CO2 31 mmol/L (21-32); MAGNESIUM 2.1 mg/dL (1.8-2.4)
[2024-11-30 10:21] LABS: GLUCOSE,RANDOM 96 mg/dL (74-106)
[2024-11-30 10:23] LABS: SGPT/ALT < 6 U/L (13-61)
[2024-11-30 10:24] LABS: CALCIUM 8.5 mg/dL (8.5-10.1); CREATININE 0.5 mg/dL (0.55-1.3); SGOT/AST 8 U/L (15-37)
[2024-11-30 10:25] LABS: BILIRUBIN,TOTAL 0.6 mg/dL (0.2-1); TOT PROT 5.8 g/dl (6.4-8.2)
[2024-11-30 10:26] LABS: ALK PHOS 61 U/L (45-117)
[2024-12-01 09:10] LABS: ABSOLUTE IMMATURE GRANULOCYTES 0.02 x10^3/uL (0.0-0.031); BASOPHILS # 0.01 x10^3/uL (0.01-0.08); EOSINOPHIL % 1.4 % (0.8-7.0); EOSINOPHILS # 0.08 x10^3/uL (0.04-0.54); HEMATOCRIT 37.8 % (40.1-51.0); HEMOGLOBIN 11.9 g/dL (13.7-17.5); MCHC 31.5 g/dl (32.3-36.5); MEAN CELL VOLUME 87.9 fl (79.0-92.2); MEAN PLT VOLUME 9.2 fl (9.4-12.4); MONOCYTE # 0.37 x10^3/uL (0.30-0.82); MONOCYTE % 6.4 % (5.3-12.2); PLATELET COUNT 151 x10^3/uL (163-337); RDW 13.1 % (12.2-16.4)
[2024-12-01 09:38] LABS: CHLORIDE 102 mmol/L (98-107); SODIUM 138 mmol/L (136-145)
[2024-12-01 09:41] LABS: BLOOD UREA NITROGEN 5.5 mg/dL (7-18); MAGNESIUM 1.6 mg/dL (1.8-2.4)
[2024-12-01 09:43] LABS: ALBUMIN 2.7 g/dl (3.4-5.0); ANION GAP 6 mmol/L (4-13); CO2 30 mmol/L (21-32); GLUCOSE,RANDOM 103 mg/dL (74-106)
[2024-12-01 09:44] LABS: CREATININE 0.5 mg/dL (0.55-1.3); SGOT/AST 11 U/L (15-37); SGPT/ALT < 6 U/L (13-61)
[2024-12-01 09:45] LABS: BILIRUBIN,TOTAL 0.4 mg/dL (0.2-1)
[2024-12-01 09:46] LABS: TOT PROT 6.1 g/dl (6.4-8.2)
[2024-12-01 09:47] LABS: ALK PHOS 62 U/L (45-117)
[2024-12-01] MEDS: CEFUROXIME AXETIL 500 MG TABLET PO ONE (10:13)
[2024-12-01 14:25] VITALS: BP 151/79; PULSE 64; TEMP 98.1
== END 2024-12-01 16:50 | disposition home or self-care (01) | DRG 392 ==
LOC: JER 15:03 → JERBED 21:46 → J8W 11-27 01:38
PROVIDERS: ADMIT Hospitalist; ATTEND Nurse Practitioner Family
DX: A09 Infectious gastroenteritis and colitis, unspecified (principal); E87.20 Acidosis, unspecified; K92.1 Melena; K92.2 Gastrointestinal hemorrhage, unspecified; K55.9 Vascular disorder of intestine, unspecified; G20.A1 Parkinson's disease without dyskinesia, without mention of fluctuations; K62.89 Other specified diseases of anus and rectum; I10 Essential (primary) hypertension; K80.20 Calculus of gallbladder without cholecystitis without obstruction; E11.9 Type 2 diabetes mellitus without complications; K44.9 Diaphragmatic hernia without obstruction or gangrene; F79 Unspecified intellectual disabilities; N40.1 Benign prostatic hyperplasia with lower urinary tract symptoms; K21.9 Gastro-esophageal reflux disease without esophagitis; N30.90 Cystitis, unspecified without hematuria; R56.9 Unspecified convulsions; Z88.0 Allergy status to penicillin; Z86.711 Personal history of pulmonary embolism
CPT/HCPCS: 0241U-QW; 36415; 71045-TC-FY; 74177-TC; 80053; 81003; 82272; 82803; 82962; 82977; 83605; 83690; 83735; 84484; 85025; 85027; 86140; 86850; 86900; 86901; 87040; 87045; 87046; 87077; 87081; 87086; 87186; 87209; 87324; 87449; 93005; 93010; 97162-GP; 99285-25; J0131; Q9967

== ENCOUNTER 2025-01-10 15:32 | Inpatient (IN) | payer OTHER ==
[2025-01-10] MEDS ORDERED: DOCUSATE SODIUM 100 MG CAPSULE (FP) PO ONE (16:31)
[2025-01-10] MEDS ORDERED: POLYETHYLENE GLYCOL (HEALTHYLAX) 3350 17 GM PACKET ONE ×2 (16:31→23:38)
[2025-01-10] MEDS ORDERED: MAGNESIUM CITRATE 300 ML BOTTLE ONE (16:31)
[2025-01-10] MEDS: MAGNESIUM CITRATE 300 ML BOTTLE PO ONE (16:45)
[2025-01-10] MEDS: DOCUSATE SODIUM 100 MG CAPSULE (FP) PO ONE (16:45)
[2025-01-10] MEDS: POLYETHYLENE GLYCOL (HEALTHYLAX) 3350 17 GM PACKET PO ONE (16:45)
[2025-01-10] MEDS: SODIUM CHLORIDE 1,000 ML IV STA (17:10)
[2025-01-10 17:22] LABS: ABSOLUTE IMMATURE GRANULOCYTES 0.04 x10^3/uL (0.0-0.031); BASOPHILS # 0.02 x10^3/uL (0.01-0.08)
[2025-01-10 17:24] LABS: EOSINOPHIL % 1.1 % (0.8-7.0); EOSINOPHILS # 0.07 x10^3/uL (0.04-0.54); HEMATOCRIT 38.3 % (40.1-51.0); HEMOGLOBIN 12.4 g/dL (13.7-17.5); MCHC 32.4 g/dl (32.3-36.5); MEAN CELL VOLUME 88.2 fl (79.0-92.2); MEAN PLT VOLUME 8.9 fl (9.4-12.4); MONOCYTE # 0.36 x10^3/uL (0.30-0.82); MONOCYTE % 5.8 % (5.3-12.2); PLATELET COUNT 147 x10^3/uL (163-337); RDW 13.9 % (12.2-16.4)
[2025-01-10 17:30] LABS: CHLORIDE 100 mmol/L (98-107); POTASSIUM 4.5 mmol/L (3.5-5.1); SODIUM 136 mmol/L (136-145)
[2025-01-10 17:33] LABS: ALBUMIN 3.2 g/dl (3.4-5.0); ANION GAP 4 mmol/L (4-13); BLOOD UREA NITROGEN 15.7 mg/dL (7-18); CALCIUM 8.9 mg/dL (8.5-10.1); CO2 32 mmol/L (21-32); GLUCOSE,RANDOM 113 mg/dL (74-106)
[2025-01-10 17:36] LABS: CREATININE 0.8 mg/dL (0.55-1.3); PHOSPHOROUS 3.5 mg/dL (2.5-4.9); SGOT/AST 17 U/L (15-37)
[2025-01-10 17:37] LABS: BILIRUBIN,TOTAL 0.4 mg/dL (0.2-1)
[2025-01-10 17:38] LABS: ALK PHOS 76 U/L (45-117); INR 1.2 (0.83-1.09); PROTHROMBIN TIME (PATIENT) 13.1 SEC (9.7-13.0)
[2025-01-10 17:40] LABS: ACTIVATED PTT 35.5 SECONDS (25.2-36.5)
[2025-01-10 17:41] LABS: SGPT/ALT < 6 U/L (13-61)
[2025-01-10 18:18] LABS: EPI CELLS 3 /uL (0-25.1); HYALINE CASTS 2 /uL (0-3.1); PH,URINE 7.5 (5.0-8.0); URINE APPEARANCE CLOUDY; URINE BACTERIA >9,000 /uL (0-1359); URINE BILIRUBIN NEGATIVE (NEGATIVE); URINE COLOR YELLOW; URINE GLUCOSE (UA) NEGATIVE (NEGATIVE); URINE KETONE TRACE (NEGATIVE); URINE LEUK ESTERASE 3+ (NEGATIVE); URINE NITRITE POSITIVE (NEGATIVE); URINE PROTEIN TRACE (NEGATIVE); URINE RBC 116 /uL (0-23.9); URINE WBC 998 /uL (0-25.8)
[2025-01-10 18:35] LABS: HCV DIAGNOSTIC IN-HOUSE W/RFLX NON-REACTIVE (NONREACTIVE)
[2025-01-10 18:36] LABS: HIV INTERPRETATION NEGATIVE (NEGATIVE)
[2025-01-10] MEDS ORDERED: MEROPENEM 1 GM VIAL (RESTRICTED TO ID) IVPB ONE (19:48)
[2025-01-10] MEDS ORDERED: DEXTROSE 5%-WATER 100 ML IVPB ONE (19:48)
[2025-01-10] MEDS: MEROPENEM 1 GM in DEXTROSE 5%-WATER 100 ML IVPB ONE (19:58)
[2025-01-10] MEDS ORDERED: FAMOTIDINE 20 MG TABLET ONE (23:38)
[2025-01-10] MEDS ORDERED: APIXABAN 5 MG TABLET ONE (23:38)
[2025-01-10] MEDS ORDERED: DIVALPROEX SODIUM 500 MG TABLET E.C. ONE ×2 (23:38→23:46)
[2025-01-10] MEDS ORDERED: ATORVASTATIN CA 10 MG TABLET (FP) ONE (23:39)
[2025-01-10] MEDS ORDERED: SENNOSIDES 8.6MG TABLET (FP) PO ONE (23:39)
[2025-01-10] MEDS: POLYETHYLENE GLYCOL (HEALTHYLAX) 3350 17 GM PACKET PO SCH (23:56)
[2025-01-10] MEDS: SENNOSIDES 8.6MG TABLET (FP) PO SCH (23:56)
[2025-01-10] MEDS: FAMOTIDINE 20 MG TABLET PO SCH (23:56)
[2025-01-10] MEDS: APIXABAN 5 MG TABLET PO SCH (23:56)
[2025-01-10] MEDS: ATORVASTATIN CA 10 MG TABLET (FP) PO SCH (23:56)
[2025-01-10] MEDS: DIVALPROEX SODIUM 500 MG TABLET E.C. PO SCH (23:56)
[2025-01-11 01:05] VITALS: BMI 33.7
[2025-01-11] MEDS: MEROPENEM 1 GM in DEXTROSE 5%-WATER 100 ML IVPB SCH ×2 (01:18→17:07)
[2025-01-11] MEDS: hydrALAZINE HCL 20 MG/ML VIAL IVPUSH ONE (01:55)
[2025-01-11] MEDS ORDERED: MEROPENEM 1 GM in DEXTROSE 5%-WATER 100 ML IVPB SCH (02:00)
[2025-01-11] MEDS: CARBIDOPA/LEVODOPA 25/100 TABLET (FP) PO SCH (05:11)
[2025-01-11] MEDS ORDERED: MEROPENEM 1 GM VIAL (RESTRICTED TO ID) IVPB ONE (08:57)
[2025-01-11] MEDS: SENNOSIDES 8.6MG TABLET (FP) PO SCH (09:16)
[2025-01-11] MEDS: POLYETHYLENE GLYCOL (HEALTHYLAX) 3350 17 GM PACKET PO SCH (09:17)
[2025-01-11 09:19] LABS: BASOPHILS # 0.01 x10^3/uL (0.01-0.08); EOSINOPHILS # 0.07 x10^3/uL (0.04-0.54); MONOCYTE # 0.43 x10^3/uL (0.30-0.82); RDW 13.9 % (12.2-16.4)
[2025-01-11 09:20] LABS: ABSOLUTE IMMATURE GRANULOCYTES 0.03 x10^3/uL (0.0-0.031); EOSINOPHIL % 1.2 % (0.8-7.0); HEMATOCRIT 38.8 % (40.1-51.0); HEMOGLOBIN 12.2 g/dL (13.7-17.5); MCHC 31.4 g/dl (32.3-36.5); MEAN CELL VOLUME 88.8 fl (79.0-92.2); MONOCYTE % 7.4 % (5.3-12.2); PLATELET COUNT 150 x10^3/uL (163-337)
[2025-01-11] MEDS: SERTRALINE HCL 50 MG TABLET (FP) PO SCH (09:23)
[2025-01-11] MEDS: DOCUSATE SODIUM 100 MG CAPSULE (FP) PO SCH (09:23)
[2025-01-11] MEDS: LISINOPRIL 10 MG TABLET PO SCH (09:23)
[2025-01-11] MEDS: TAMSULOSIN HCL 0.4 MG CAP PO SCH (09:23)
[2025-01-11 09:53] LABS: POTASSIUM 4.2 mmol/L (3.5-5.1)
[2025-01-11 10:02] LABS: BLOOD UREA NITROGEN 21.1 mg/dL (7-18)
[2025-01-11 10:03] LABS: ALBUMIN 3.3 g/dl (3.4-5.0); CALCIUM 9.3 mg/dL (8.5-10.1)
[2025-01-11 10:07] LABS: BILIRUBIN,TOTAL 0.4 mg/dL (0.2-1); CREATININE 0.8 mg/dL (0.55-1.3)
[2025-01-11 10:08] LABS: TOT PROT 6.8 g/dl (6.4-8.2)
[2025-01-11] MEDS: DUTASTERIDE 0.5 MG CAP (FP) PO SCH (10:22)
[2025-01-13] MEDS: LISINOPRIL 20 MG TABLET PO SCH (09:25)
[2025-01-13] MEDS: CEFTRIAXONE 2 GM-D5W BAG 2 GM/50 ML BAG IVPB SCH (19:45)
[2025-01-14 09:49] LABS: MEAN PLT VOLUME 9.1 fl (9.4-12.4)
[2025-01-14 09:51] LABS: ABSOLUTE IMMATURE GRANULOCYTES 0.03 x10^3/uL (0.0-0.031); BASOPHILS # 0.01 x10^3/uL (0.01-0.08); EOSINOPHILS # 0.13 x10^3/uL (0.04-0.54); HEMATOCRIT 37.4 % (40.1-51.0); MCHC 32.1 g/dl (32.3-36.5); MEAN CELL VOLUME 87.4 fl (79.0-92.2); MONOCYTE # 0.48 x10^3/uL (0.30-0.82); MONOCYTE % 7.5 % (5.3-12.2); PLATELET COUNT 165 x10^3/uL (163-337); RDW 14.1 % (12.2-16.4)
[2025-01-14 10:15] LABS: POTASSIUM 3.9 mmol/L (3.5-5.1)
[2025-01-14 10:27] LABS: CALCIUM 8.9 mg/dL (8.5-10.1)
[2025-01-14 10:28] LABS: BLOOD UREA NITROGEN 20.3 mg/dL (7-18)
[2025-01-14 10:31] LABS: CREATININE 0.8 mg/dL (0.55-1.3)
[2025-01-14] MEDS: BISACODYL 5 MG TABLET.DR (FP) PO ONE (15:27)
[2025-01-14] MEDS: guaiFENesin 200 MG/10 ML 10 ML UNIT-DOSE CUPS PO PRN (16:01)
[2025-01-14] MEDS: PEG 3350/NA SULF BICARB CL/KCL 4000 ML SOLN.RECON PO ONE (16:04)
[2025-01-15 09:34] LABS: HEMATOCRIT 38.2 % (40.1-51.0); HEMOGLOBIN 12.1 g/dL (13.7-17.5); MCHC 31.7 g/dl (32.3-36.5); MEAN PLT VOLUME 8.8 fl (9.4-12.4); PLATELET COUNT 141 x10^3/uL (163-337); RDW 14.3 % (12.2-16.4)
[2025-01-15 09:59] LABS: POTASSIUM 3.8 mmol/L (3.5-5.1)
[2025-01-15 10:01] LABS: CALCIUM 9.4 mg/dL (8.5-10.1)
[2025-01-15 10:02] LABS: BLOOD UREA NITROGEN 16.6 mg/dL (7-18)
[2025-01-15 10:54] LABS: CREATININE 0.7 mg/dL (0.55-1.3)
[2025-01-15] MEDS: PEG 3350/NA SULF BICARB CL/KCL 4000 ML SOLN.RECON PO ONE (17:16)
[2025-01-15] MEDS: guaiFENesin/D-METHORPHAN HB 10 ML UNIT-DOSE CUPS PO PRN (20:02)
[2025-01-16 08:11] LABS: ABSOLUTE IMMATURE GRANULOCYTES 0.01 x10^3/uL (0.0-0.031); BASOPHILS # 0.01 x10^3/uL (0.01-0.08); EOSINOPHIL % 2.7 % (0.8-7.0); EOSINOPHILS # 0.14 x10^3/uL (0.04-0.54); HEMATOCRIT 37.3 % (40.1-51.0); HEMOGLOBIN 11.9 g/dL (13.7-17.5); MCHC 31.9 g/dl (32.3-36.5); MEAN CELL VOLUME 87.4 fl (79.0-92.2); MEAN PLT VOLUME 8.8 fl (9.4-12.4); MONOCYTE # 0.46 x10^3/uL (0.30-0.82); MONOCYTE % 8.7 % (5.3-12.2); PLATELET COUNT 152 x10^3/uL (163-337); RDW 13.8 % (12.2-16.4)
[2025-01-16 08:16] LABS: POTASSIUM 3.8 mmol/L (3.5-5.1)
[2025-01-16 08:22] LABS: BLOOD UREA NITROGEN 9.6 mg/dL (7-18); CALCIUM 9.1 mg/dL (8.5-10.1)
[2025-01-16 08:26] LABS: CREATININE 0.5 mg/dL (0.55-1.3)
[2025-01-16 19:28] VITALS: RESP 18
[2025-01-17 14:31] VITALS: BP 147/65; PULSE 72; TEMP 97.9
== END 2025-01-17 14:32 | disposition home or self-care (01) | DRG 690 ==
LOC: JER 15:32 → JERBED 18:48 → J6S 01-11 00:44
PROVIDERS: ADMIT Student in an Organized Health Care Education/Training Program; ATTEND Family Medicine
PROC: 0DBN8ZX Excision of Sigmoid Colon, Via Natural or Artificial Opening Endoscopic, Diagnostic (ICD-10-PCS; principal; 2025-01-16 12:15)
DX: N39.0 Urinary tract infection, site not specified (principal); G20.A1 Parkinson's disease without dyskinesia, without mention of fluctuations; I10 Essential (primary) hypertension; E11.9 Type 2 diabetes mellitus without complications; N40.0 Benign prostatic hyperplasia without lower urinary tract symptoms; K59.00 Constipation, unspecified; K21.9 Gastro-esophageal reflux disease without esophagitis; K57.90 Diverticulosis of intestine, part unspecified, without perforation or abscess without bleeding; F79 Unspecified intellectual disabilities; R10.32 Left lower quadrant pain; G40.909 Epilepsy, unspecified, not intractable, without status epilepticus; F39 Unspecified mood [affective] disorder; I45.19 Other right bundle-branch block; F41.9 Anxiety disorder, unspecified; B96.20 Unspecified Escherichia coli [E. coli] as the cause of diseases classified elsewhere; Z86.718 Personal history of other venous thrombosis and embolism; Z88.0 Allergy status to penicillin
CPT/HCPCS: 36415; 74177-TC; 80048; 80053; 80164; 81003; 82962; 83036; 83735; 84100; 85025; 85027; 85610; 85730; 86803; 86850; 86900; 86901; 87086; 87186; 87389; 87635; 88305-TC; 93005; 93010; 93306-TC; 99285-25; Q9967

== ENCOUNTER 2025-03-16 20:36 | Emergency (ER) | payer OTHER ==
[2025-03-16 20:41] VITALS: BP 195/92; PULSE 96; RESP 18; TEMP 98.3; BMI 31.9
[2025-03-16] MEDS ORDERED: LISINOPRIL 20 MG TABLET ONE (22:01)
[2025-03-16] MEDS: LISINOPRIL 20 MG TABLET PO ONE (22:08)
== END 2025-03-17 00:21 ==
LOC: JER 20:36
DX: R05.9 Cough, unspecified (principal); J34.89 Other specified disorders of nose and nasal sinuses; J02.9 Acute pharyngitis, unspecified; R10.32 Left lower quadrant pain
CPT/HCPCS: 71045-TC-FY; 87637-QW; 93005; 93010; 99285-25